=== PATIENT | male | born 1945 | race Caucasian/White ===

== ENCOUNTER 2019-12-27 10:27 | Outpatient (CLI) | payer MEDICARE, OTHER, SELFPAY ==
--- NOTE | 2019-12-27 09:45 | DI.RAD_ITS ---
EXAM: XR STANDING ALIGNMENT CLINICAL HISTORY: knee pain TECHNIQUE: COMPARISON: CR XR KNEE RT 3V AP,LAT,PASTOR from 12/27/2019 FINDINGS: Standing alignment views and three views of the right knee were obtained. There are mild degenerativ e changes of both hips and SI joints. There are moderate degenerative changes of the medial tibiofem oral joint on the left. On the right there is severe narrowing of the medial tibiofemoral cartilagin ous joint space with subchondral sclerosis of the adjacent bones. Slight marginal osteophyte formati on also noted at the medial tibiofemoral joint. Moderate marginal osteophyte formation of the patellofemoral joint also. IMPRESSION: Severe DJD right medial tibiofemoral joint. RADIATION DOSE DELIVERED: Total DLP
== END 2019-12-27 10:47 ==
PROVIDERS: PCP Internal Medicine; Referring Provider Internal Medicine; Visit Provider Student in an Organized Health Care Education/Training Program
DX: M17.0 Bilateral primary osteoarthritis of knee (principal); M25.761 Osteophyte, right knee; M17.11 Unilateral primary osteoarthritis, right knee; M25.561 Pain in right knee
CPT/HCPCS: 73562; 99203; 77073

== ENCOUNTER 2020-02-14 01:00 | Outpatient (CLI) | payer MEDICARE, OTHER, SELFPAY ==
[2020-02-14 14:11] LABS: HCT 40.9 % (40.0-50.0); HGB 13.3 g/dL (13.5-17.5); MCH 30.3 pg (27.0-33.0); MCHC 32.5 % (32.0-36.0); MCV 93.2 fL (80-95); MPV 9.9 fL (8.0-11.0); Platelet Count 220 10^3/uL (130-400); RBC 4.39 10^6/uL (4.36-5.78); RDW 13.2 % (11.8-14.1); RDW-SD 45.6 fL; WBC 5.77 10^3/uL (4.4-10.8)
[2020-02-14 14:40] LABS: Anion Gap 8.5 mmol/L (3-11); BUN 28 mg/dL (7-18); CO2 27.5 mmol/L (21.0-32.0); CREATININE 1.17 mg/dL (0.70-1.30); Calcium 8.9 mg/dL (8.5-10.1); Chloride 106 mmol/L (98-107); Glucose 100 mg/dL (74-106); Potassium 4.5 mmol/L (3.5-5.1); Sodium 142 mmol/L (136-145)
== END 2020-02-14 01:20 ==
PROVIDERS: PCP Internal Medicine; Visit Provider Student in an Organized Health Care Education/Training Program
DX: Z01.818 Encounter for other preprocedural examination (principal)
CPT/HCPCS: 36415; 80048; 85027

== ENCOUNTER 2020-02-15 01:47 | Outpatient (CLI) | payer MEDICARE, OTHER, SELFPAY ==
[2020-02-17 11:51] LABS: SARS-CoV-2 RNA Not Detected (NotDetected); SARS-CoV-2 RNA Source Nasal/Nares
== END 2020-02-15 02:07 ==
PROVIDERS: PCP Internal Medicine; Visit Provider Student in an Organized Health Care Education/Training Program
DX: Z11.59 Encounter for screening for other viral diseases (principal); Z01.818 Encounter for other preprocedural examination
CPT/HCPCS: U0003

== ENCOUNTER 2020-02-20 07:00 | Observation (INO) | payer MEDICARE, OTHER, SELFPAY ==
[2020-02-20] VITALS (10 sets, daily range): BP systolic 126–187; BP diastolic 56–92; PULSE 33–64; RESP 10–20; TEMP 35.9–36.4; O2SAT 96–98
--- NOTE | 2020-02-20 07:22 | W.PM.DS.N ---
Documented by User: Sara Robi 02/20/20 07:26 DS: Diagnosis Discharge Diagnosis (1) Primary osteoarthritis of right knee: Status: Chronic Discharge Plan Disposition Patient Disposition: HOME Condition: Good Discharge Details Reason For Visit: Right knee DJD Admit Date/Time: 02/20/20 07:00 Admit Provider: Lion Hercules Attending Provider: Lion Hercules Primary Care Provider: Rebeca Jennings Hospital Course Hospital Course: Patient was admitted to the medical/surgical floor following the procedure. Prior to surgery Eze was noted to have an irregular rate. Therefore, an EKG was performed which demonstrated intermittent PVC in bigeminy. Given he was asymptomatic, this case was briefly discussed with Cardiology who agreed that it is a usually benign rhythm that should have outpatient followup but not delay surgery. Thus, the surgery for his knee was continued and it was tolerated well without any notable medical, surgical, or anesthetic complications. Mobilization began post-operatively. He was voiding spontaneously. Vitals were stable except for irregularities with pulse on the recording devices. Physical therapy worked with the patient and was cleared for discharge home. No acute medical issues. Pain was controlled on oral regimen. Home Meds and New Rx's Prescriptions: New acetaminophen 500 mg tablet 500 mg PO Q6H PRN (Reason: pain) Qty: 60 RF: 2 aspirin 81 mg tablet,delayed release (DR/EC) 81 mg PO BID 30 Days Qty: 60 RF: 0 celecoxib [Celebrex] 200 mg capsule 200 mg PO BID Qty: 60 RF: 0 docusate sodium [Colace] 100 mg capsule 100 mg PO BID Qty: 30 RF: 0 oxycodone 5 mg tablet 2.5 - 5 mg PO Q4H PRN (Reason: severe post-operative pain) Qty: 18 RF: 0 pantoprazole 40 mg tablet,delayed release (DR/EC) 40 mg PO DAILY 30 Days Qty: 30 RF: 0 Discontinued metoprolol tartrate 100 mg tablet 100 mg PO DAILY RF: 0 naproxen 500 mg tablet 500 mg PO BID RF: 0 No Action ropinirole 0.5 mg tablet 1 mg PO QHS RF: 0 naproxen 500 mg Tablet 500 mg PO BID RF: 0 Discharge Instructions Additional Instructions: Total Knee Discharge Instructions Activity: The most important activity is to walk. You should try to take short walks a few times a day. It is important that when resting you work on keeping the knee straight. Avoid putting a pillow behind the knee as this will encourage flexion. Work on range of motion exercises as provided by Physical Therapy. - Start outpatient physical therapy within 2 weeks. - You should wear the PAT hose on both legs for 2 weeks. Dressing: Keep the surgical dressing in place for at least one week. After the first week it may be removed and replace with light gauze and tape or nothing. It may get wet after 3 days but avoid soaking the dressing. If it gets wet, just lightly pat dry. Medications: HOLD YOUR METOPROLOL UNTIL DISCUSSED WITH DR. JENNINGS - You should take Tylenol and anti-inflammatory Celebrex as your primary pain control medications. You should not take your Naproxen while on Celebrex. - You have been prescribed a stronger pain medication Oxycodone for breakthrough pain, take as needed as prescribed. - You have also been prescribed a stomach acid reduction agent Pantoprozole to help reduce stomach acid and reflux. - You will be taking Aspirin 81mg twice a day for DVT prevention unless instructed otherwise. - If you have constipation you should take Colace (which was prescribed) or Miralax (which you may purchase [id number]). It takes most people 3-4 days to have a bowel movement. Follow-up: 2 weeks If you have any acute concerns or questions, please do not hesitate to contact the office at [phone]. You may contact Dr. Hercules with any questions after hours through the hospital at [phone] or on his cell phone at [phone]. Referrals: Lion Hercules MD [ [facility] STAFF PHYSICIAN] - Activity:: Activity as Tolerated Equipment/Supplies:: Walker Diet:: As Tolerated Discharge Orders Discharge Orders: Discharge Order (Routine); Ordered 02/21/20 Ordered By: Lion Hercules [facility] Medical History HTN (hypertension) Refusal of blood transfusions as patient is Advent RLS (restless legs syndrome) Surgical History Hx of meniscectomy of right knee Social History Smoking/Tobacco Use Status: Former Tobacco Use Smoking risk assessment performed?: Yes Drug use: Never Current gender identity: male Documented by User: Lion Hercules MD 02/21/20 07:41 Date of service: 02/21/20 Time of Service: 07:33 Discharge Plan Disposition Patient Disposition: HOME Condition: Good Discharge Details Reason For Visit: Right knee DJD Admit Date/Time: 02/20/20 07:00 Admit Provider: Lion Hercules Attending Provider: Lion Hercules Primary Care Provider: Rebeca Jennings Hospital Course Hospital Course: Patient was admitted to the medical/surgical floor following the procedure. Prior to surgery Eze was noted to have an irregular rate. Therefore, an EKG was performed which demonstrated intermittent PVC in bigeminy. Given he was asymptomatic, this case was briefly discussed with Cardiology who agreed that it is a usually benign rhythm that should have outpatient followup but not delay surgery. Thus, the surgery for his knee was continued and it was tolerated well without any notable medical, surgical, or anesthetic complications. Mobilization began post-operatively. He was voiding spontaneously. Vitals were stable except for irregularities with pulse on the recording devices. Physical therapy worked with the patient and was cleared for discharge home. No acute medical issues. Pain was controlled on oral regimen. Home Meds and New Rx's Prescriptions: New acetaminophen 500 mg tablet 500 mg PO Q6H PRN (Reason: pain) Qty: 60 RF: 2 aspirin 81 mg tablet,delayed release (DR/EC) 81 mg PO BID 30 Days Qty: 60 RF: 0 celecoxib [Celebrex] 200 mg capsule 200 mg PO BID Qty: 60 RF: 0 docusate sodium [Colace] 100 mg capsule 100 mg PO BID Qty: 30 RF: 0 oxycodone 5 mg tablet 2.5 - 5 mg PO Q4H PRN (Reason: severe post-operative pain) Qty: 18 RF: 0 pantoprazole 40 mg tablet,delayed release (DR/EC) 40 mg PO DAILY 30 Days Qty: 30 RF: 0 Discontinued metoprolol tartrate 100 mg tablet 100 mg PO DAILY RF: 0 naproxen 500 mg tablet 500 mg PO BID RF: 0 No Action ropinirole 0.5 mg tablet 1 mg PO QHS RF: 0 naproxen 500 mg Tablet 500 mg PO BID RF: 0 Discharge Instructions Additional Instructions: Total Knee Discharge Instructions Activity: The most important activity is to walk. You should try to take short walks a few times a day. It is important that when resting you work on keeping the knee straight. Avoid putting a pillow behind the knee as this will encourage flexion. Work on range of motion exercises as provided by Physical Therapy. - Start outpatient physical therapy within 2 weeks. - You should wear the PAT hose on both legs for 2 weeks. Dressing: Keep the surgical dressing in place for at least one week. After the first week it may be removed and replace with light gauze and tape or nothing. It may get wet after 3 days but avoid soaking the dressing. If it gets wet, just lightly pat dry. Medications: HOLD YOUR METOPROLOL UNTIL DISCUSSED WITH DR. JENNINGS - You should take Tylenol and anti-inflammatory Celebrex as your primary pain control medications. You should not take your Naproxen while on Celebrex. - You have been prescribed a stronger pain medication Oxycodone for breakthrough pain, take as needed as prescribed. - You have also been prescribed a stomach acid reduction agent Pantoprozole to help reduce stomach acid and reflux. - You will be taking Aspirin 81mg twice a day for DVT prevention unless instructed otherwise. - If you have constipation you should take Colace (which was prescribed) or Miralax (which you may purchase [id number]). It takes most people 3-4 days to have a bowel movement. Follow-up: 2 weeks If you have any acute concerns or questions, please do not hesitate to contact the office at [phone]. You may contact Dr. Hercules with any questions after hours through the hospital at [phone] or on his cell phone at [phone]. Referrals: Lion Hercules MD [ [facility] STAFF PHYSICIAN] - Activity:: Activity as Tolerated Equipment/Supplies:: Walker Diet:: As Tolerated Discharge Orders Discharge Orders: Discharge Order (Routine); Ordered 02/21/20 Ordered By: Lion Hercules DS: Summary Status at Discharge Functional status at discharge: uses cane/walker Overall status at discharge: patient is progressing back to baseline Mental Status: mental status grossly normal Speech and Movement: speech and movement normal Mood: congruent mood Affect: normal affect Exam Psych Mental Status: mental status grossly normal Speech and Movement: speech and movement normal Mood: congruent mood Affect: normal affect [facility] Medical History HTN (hypertension) Refusal of blood transfusions as patient is Advent RLS (restless legs syndrome) Surgical History Hx of meniscectomy of right knee Social History Smoking/Tobacco Use Status: Former Tobacco Use Smoking risk assessment performed?: Yes Drug use: Never Current gender identity: male
--- NOTE | 2020-02-20 10:15 | RT.EKG_ITS ---
APPROVED REPORT Exam: Resting ECG Patient Location: I HR:67 bpm ECG Measurements Heart Rate 67 AXIS NH 185 P 49 QRSd 94 QRS 9 QT 406 T 17 QTc 428 Conclusion Sinus rhythm...normal P axis, V-rate 60- 99 Ventricular trigeminy...trigeminy string>6 w/ V complexes Probable left atrial enlargement...P >50mS, <-0.10mV V1
[2020-02-20] MEDS: Lactated Ringers 1,000 ML 80 ML IV ×2 (11:05→20:33)
[2020-02-20] MEDS: Acetaminophen 500 MG TAB 1000 MG PO ×2 (11:07→20:31)
[2020-02-20] MEDS: Gabapentin 300 MG CAP PO ×2 (11:07→21:56)
[2020-02-20] MEDS: Celecoxib 200 MG CAP 400 MG PO (11:07)
[2020-02-20] MEDS: ceFAZolin 2 GM/50 ML BAG IVPB (12:14)
[2020-02-20] MEDS: Bupivacaine 0.25% Pres-Free 30 ML VIAL (12:33)
[2020-02-20] MEDS: Bupivacaine 0.25% Pres-Free 10 ML VIAL (12:45)
[2020-02-20] MEDS: Ketorolac 30 MG/ML VIAL (12:47)
[2020-02-20] MEDS: Normal Saline 20 ML VIAL (12:48)
--- NOTE | 2020-02-20 13:40 | ROE_ITS ---
Date of service: 02/20/20 Time of Service: 13:40 Operative Note Operative Note DATE OF PROCEDURE: 02/20/20 PRE-OP DIAGNOSIS: Right Knee Osteoarthritis POST-OP DIAGNOSIS: same PROCEDURE: Right Total Knee Replacement SURGEON: Lion Hercules ROPE TWISTING MACHINE OPERATOR: Annabelle Cloud ANESTHESIA: regional and spinal ESTIMATED BLOOD LOSS: 300 PATHOLOGY: none sent TOURNIQUET TIME: 0 COMPLICATIONS: None Patient was transported to: PACU Patient's condition: stable Implants: 1. Depuy Attune Cementless Cruciate Retaining Femoral Component, Size 8 2. Depuy Attune Cementless Rotating Platform Tibial Component, Size 6 3. Depuy Attune 8x6mm CR/RP Poly 4. Depuy Attune Patellar Component, Size 38mm Indications: I have seen Howard in clinic for symptoms of knee arthritis, confirmed with radiographic findings. He has exhausted nonoperative methods and was having significant limitations in daily function and desired better function and less pain. I discussed the technical details of a knee replacement. I explained the risks of the procedure to include, but not limited to, bleeding, i nfection, pain, stiffness, fracture, damage to nerves and vessels, damage to muscles and tendons, loosening, need for repeat procedure, blood clot and cardiopulmonary demise. Despite these risks, Howard elected to proceed. Findings: There was significant signs of arthritis throughout the knee, mostly of the patellofemoral and medial compartment Procedure Description: Howard was greeted in the preoperative holding area where the correct side was identified and marked. The consent was reviewed with the patient and signed. The history and physical was updated. All questions were answered. Preoperative medications were administered: Acetaminophen 1000mg, Celebrex 400mg, and Gabapentin 300mg. An adductor canal block was then administered by the anesthesia team in the PACU. He was taken back to the operating room. A spinal anesthestic was then administered. The patient was placed into the supine position on the operating room table. A nonsterile tourniquet was placed high onto the leg but only used for cementing. Posts were placed for positioning during the procedure. All bony prominences were well padded. Prophylactic antibiotics in the form of Cefazolin were administered. 1g of Tranxemic Acid was given intravenously within 30 minutes of incision. The right leg was then prepped with Chloraprep and draped in a standard fashion with impervious stockinette. A second prep with Chloraprep was performed prior to application of Iodine impregnated skin protection. A timeout to confirm correct identity, side and site, procedure, allergies, anesthesia, and medical concerns was performed. With the knee in some flexion, a midline incision was made overlying the knee. Full thickness skin flaps were raised once the extensor mechanism was encountered. These were raised medially and laterally. Any bleeding was controlled with electrocautery. Once the extensor mechanism was fully exposed, a medial parapatellar arthrotomy was performed in a flexed position. All bleeding from the arthrotomy and the geniculate arteries was coagulated. A medial subperiosteal peel was performed with electrocautery to the midcoronal plane. The fat pad was removed while keeping the patellar tendon protected. The anterior distal femur synovium was removed for later visualization. The ACL and PCL were resected and the anterior horn of the lateral meniscus was transected. The knee was then flexed with the patella everted. Large osteophytes from the tibia were removed. Large o steophytes from the femur were removed. Using a step drill, and based on preoperative templating, the femoral canal was entered. This was done with a step drill without any difficulty. The intram edullary distal femoral cut guide was inserted, set to a 5 degree valgus cut and 9mm cut thickness. The distal femoral cut guide was then held in position and pinned. With the soft tissues protected, the distal cut was performed. This was passed over a few times to ensure a planar cut. I then turned attention to the tibia. The extramedullary guide was placed onto the leg. The distal aspect was slid medial to adjust for position of center of ankle and stay in line with shaft of the tibia. Approximately 5 degrees of posterior slope was kept in the proximal cutting guide. The center of the guide was aligned with the PCL. The stylus was used to assess cut thickness. The medial side, most involved side, was set for a 2mm cut. This was then held in position and pinned into place with 2 additional pins and a cross pin for stability. The medial and lateral collateral ligaments were protected and the cut was performed. With this completed, it was assessed and noted to be of appropriate dimensions. The guide was removed. A spacer block was inserted and the knee was brought into extension. The 6mm spacer block provided full extension, without hyperextension and with stability of both the medial and lateral collateral ligaments was assessed. The pins from the femur and the tibia were then removed. The distal femur was then sized. The anterior stylus was placed onto the lateral ridge of the anterior femur. This indicated a size 8 femur. The external rotation of the guide was adjusted to 3 degrees to match the epicondylar axis, perpendicular to [place]?s line. The 4-in-1 cutting guide was the placed. The posterior medial femur cut was evaluated and appeared of good thickness. The spacer block was inserted underneath the cutting guide and stability was confirmed in 90 degrees of flexion. An abelardo wing was used to confirm appropriate position of the anterior cut to avoid notching. This cutting guide was ensured to be flush on the cut surface and then pinned into place with headed pins. While protecting the soft tissues, quad tendon, and collateral ligaments, the anterior and posterior cuts were performed with a saw. The central two pins were removed and the posterior and anterior chamfers were cut next. The notch-cutting guide was placed. This was pinned to lateralize the femoral component as much as possible while keeping it flush on the cut surface. This was then pinned into position. A reciprocating saw was used to make the notch cut. A rasp smoothed the cut surfaces. The medial and lateral menisci were removed. A trial femoral component was then inserted, impacted down to the cut surfaces, and the lug holes were drilled. A provisional trial tibial component was placed and the knee was brought through range of motion. There was noted to be excellent extension and flexion. There was no significant instability. The patella was tracking without thumbs. A size 6mm polyethylene component provided the best range of motion and stability with less than 2mm gapping with medial and lateral stress and full extension without significant hyperextension. The tibial cut surface was fully exposed. The tibia was then sized as a 6. The tibia had been previously marked during trialing to correspond to the center of the tibial component to help with rotation. The trial was aligned to this sherrell, approximately rotated to the medial 1/3rd of the tibial tubercle. The trial was pinned into place. The tibia was prepared with a reamer and a keel punch and lug holes. The knee was then brought into extension and the patella was measured as 28mm. Using the patellar clamp and cut guide, this was resected to a flat surface with at least 13mm of thickness remaining. The size 38mm patella fit the best. This was oriented and then clamped into position. The lugs were drilled. The trial components were removed. The final components were opened on the back table. The periosteal and capsular tissues, especially posteriorly, around the knee were then systematically injected with a periarticular cocktail consisting of 50cc 0.25% Marcaine, 30mg Ketorolac, 20cc of Exparal and 50cc of injectable saline. The knee was thoroughly irrigated with a pulse lavage and dried. Irrisept was also used to irrigate the tissues. On the back table, with the implants opened, the cement was mixed. One batche of high viscosity cement were prepared with vacuum assistance. After the cement was ready a small amount was placed on the cut surface of the patella and the patellar button was clamped into position and held. During this process attention was turned to the gutters of the knee and for all interfaces for any excess cement. While the cement was hardening, the cementless knee components were placed. Starting with the tibial component, the tibia was subluxed anteriorly and the lug holes of the component were lined up. The tibia was then impacted with an impactor and mallet until the tibial component was in contact with the tibia. The final polyethylene component was inserted. Then, the femoral component was inserted. The lug holes were aligned and the component was impacted into position. The knee was irrigated with Irrisept chlorhexadine solution. This was allowed to sit in the knee for 3 minutes. After the cement had finally cured, approximately 15min, the clamp was removed from the patella and the knee was taken through range of motion. The patella was tracking with a no-thumbs technique. The capsule was then reapproximated with a No. 1 Vicryl at multiple locations. The capsule was finally closed with a No. 2 Stratafix, barbed suture. The tourniquet was then released and the arthrotomy appeared watertight without significant bleeding. The second dosing of 1g TXA was started. Deep tissues were then reapproximated with 0 Vicryl and 2-0 Vicryl. The skin was closed with a running 3-0 Monocryl in a subcuticular fashion. This was reinforced with skin glue. A Mepilex silver dressing was applied along with a [id number] ABDIRASHID wrap. A CryoCuff was applied. Howard was transferred to the hospital bed without difficulty an suffering no apparent complication. Howard has a good prognosis. Physical therapy will start today and without restrictions, weight-bearing as tolerated. Aspirin 81mg BID will be used for DVT prophylaxis.
--- NOTE | 2020-02-20 15:15 | PT.INIE ---
Date of service: 02/20/20 Time of Service: 15:15 PT Notes Visit Reasons: Right knee DJD Physical Therapy Inpatient Initial Evaluation Date: 02/20/2020 Referring Doctor: NIGHAT Russell PT Orders: PT CONSULT: Status post Ortho surgery Precautions: Fall. Standard. WBAT on right LE. Patient Profile/Admitting Diagnosis: Howard is a 74-year-old male with primary unilateral osteoarthritis of the right knee and is status post right total knee arthroplasty on postoperative day 0. PMHX: Unremarkable Social History/Home Situation: Lives with in a private home with 4 steps to enter with a rail on the right side going up. Independent with all aspects of ADLs prior to surgery. Equipment Owned/DME: Front wheeled walker, raised toilet seat Subjective: Agreeable to PT consult. Denies headache, chest pain, and dizziness throughout session. Objective: General Observation: ABDIRASHID wraps over Mepilex Ag on the right knee. Cryo/Cuff in the right knee. IV in R UE. Pop-eye sign on the R arm due to pre existing R biceps brachii rupture. Mental Status: Oriented x 4 Pain: 4/10 in the right knee Vital Signs: Within normal limits as closely monitored by nursing staff. ROM: Right Upper Extremity: Shoulder Flexion WFL. Shoulder abduction WFL. Elbow flexion WFL. Wrist flexion WFL. Opening and closing of hand WFL. Left Upper Extremity: Shoulder Flexion WFL. Shoulder abduction WFL. Elbow flexion WFL. Wrist flexion WFL. Opening and closing of hand WFL. Right Lower Extremity: Hip flexion WFL. Hip abduction WFL. Knee flexion 20 degrees to 100 degrees. Knee extension -20 degrees. Ankle dorsiflexion WFL. Ankle plantarflexion WFL. Left Lower Extremity: Hip flexion WFL. Hip abduction WFL. Knee flexion WFL. Ankle dorsiflexion WFL. Ankle plantarflexion WFL. Strength: Right Upper Extremity: Shoulder flexors 5/5. Shoulder abductors 5/5. Elbow flexors 5/5. Elbow extensors 5/5. Director Life Sales strong. Left Upper Extremity: Shoulder flexors 5/5. Shoulder abductors 5/5. Elbow flexors 5/5. Elbow extensors 5/5. Director [employer] strong. Right Lower Extremity: Hip flexors 4-/5. Hip abductors 4-/5. Knee flexors 3-/5. Knee extensors 3-/5. Ankle dorsiflexors 5/5. Ankle plantarflexors 5/5. Left Lower Extremity:Hip flexors 5/5. Hip abductors 5/5. Knee flexors 5/5. Knee extensors 5/5. Ankle dorsiflexors 5/5. Ankle plantarflexors 5/5. Sensation: Intact as to pain and pressure on bilateral lower extremities. Bed Mobility/Transfers: Rolling supervision Supine to sit supervision Sit to supine supervision Sit to stand standby assist Stand to sit standby assist Bed to chair standby assist THERA EX: Education and training in correct performance of standing, seated, and reclined exercises 1. Bilateral heel raises x 10 while holding onto FWW contact-guard assist 2. Seated hip flexion x 10 3. LAQs x 10 4. Quadriceps setting with 5-second hold x 10 4. Ankle PF/DF x 20 Gait: 100 feet x 2 using front wheeled walker with WBAT on the right LE requiring only standby assist with step to gait pattern and decreased hadyee. Denies headache, dizziness, chest pain throughout. No LOB. Up and down six 4 inch steps and four 6 inch steps holding onto 1 rail and a single-point cane with the other hand requiring only standby assist. Balance: Static Sitting: Normal Dynamic Sitting: Normal Static Standing: Fair Dynamic Standing: Fair Special Tests: Mobility Limitations Standardized Measure [facility] AM-PAC 6 clicks Basic Mobility Inpatient Short Form: Raw Score: 22 CMS Score: 21% deficit Informed Consent/Education: Patient instructed in purpose of PT consult and plan of care. Assessment: Number demonstrates functional mobility decline requiring the use of a front wheeled walker and assist of 1 for all mobility ADL performance, impaired gait pattern, compromised balance skills, and increased risk for falls due to postoperative status. Howard is a 74-year-old male with primary unilateral osteoarthritis of the right knee and is status post right total knee arthroplasty on postoperative day 0. Patient presents with clinical signs and symptoms consistent with current/admitting diagnoses that have resulted to mobility limitations, gait instability, generalized weakness, and impairment of motor control as demonstrated by the following impairment level findings: 1. Decreased strength to right knee major muscle groups 2. Impaired standing balance 3. Impaired activity tolerance 4. Limitation of joint range of motion in right knee Impairments are contributing to the following functional limitations: 1. Inability to safely ambulate without assistive device and physical assistance 2. Increase completion time for mobility ADL performance 3. Increased fall risk 4. Inability to negotiate steps alone safely Patient is assessed as a 03434 moderate complexity based on the following: History: 74-year-old male with impairment level findings, functional limitations, and past medical history as indicated above Examination: Demonstrable impairment in strength, balance, and mobility level with underlying impairments and functional limitations as documented above Presentation:Evolving Decision Makin moderate complexity Goals: Goals X 1-2 more sessions 1. Supine-Sit independent 2. Sit-Supine independent 3. Sit-Stand independent 4. Stand-Sit independent 5. Bed-Chair independent 6. Chair-Bed independent 7. Independent gait on level surface with use of least restrictive device for at least 300 feet without report of pain nor dyspnea 8. Independent stair negotiation while holding onto bilateral rails for at least 10 steps without report of pain nor dyspnea 9. Independent with home exercise program 10. Good static and dynamic standing balance/tolerance Plan of Care/Treatment Plan: 1-2x/day, 7 days/week x 1 week. Plan of care has been reviewed with the DISASTER RECOVERY ANALYST providing the service under Physical Therapy direction. Initiate Physical Therapy intervention for strengthening, bed mobility, transfers, gait, stairs, balance training, use of assistive device. DISCHARGE RECOMMENDATIONS: Home when medically cleared by orthopedic surgeon. May benefit from outpatient PT services as deemed necessary by orthopedic surgeon at the 2-week follow-up appointment return to premorbid independent level. TREATMENT CODE/TIME: 9716 2 x 25 minutes, 71954 x 16 minutes beginning at 15:15 PM. Thank you for the opportunity to participate in the care of this patient. Sosa Duarte PT, DPT, CLT [facility] [place], [place]
[2020-02-20] MEDS: oxyCODONE 5 MG TAB PO (15:16)
[2020-02-20] MEDS: Aspirin E.C. 81 MG TABEC PO (20:31)
[2020-02-20] MEDS: Celecoxib 200 MG CAP PO (20:31)
[2020-02-20] MEDS: ceFAZolin 1 GM/50 ML BAG IVPB (20:32)
[2020-02-20] MEDS: rOPINIRole 0.5 MG TAB 1 MG PO (21:56)
[2020-02-21 01:00] VITALS: PULSE 34
[2020-02-21 01:17] VITALS: PULSE 65; O2SAT 99
[2020-02-21] MEDS: ceFAZolin 1 GM/50 ML BAG IVPB (04:11)
[2020-02-21] MEDS: Lactated Ringers 1,000 ML 80 ML IV (06:27)
[2020-02-21 07:33] VITALS: BP 130/66; PULSE 57; RESP 17; TEMP 36.8; O2SAT 98
[2020-02-21] MEDS: Aspirin E.C. 81 MG TABEC PO (07:46)
[2020-02-21] MEDS: Acetaminophen 500 MG TAB 1000 MG PO (07:46)
[2020-02-21] MEDS: Pantoprazole 40 MG TABCR PO (07:46)
[2020-02-21] MEDS: Celecoxib 200 MG CAP PO (07:46)
[2020-02-21] MEDS: Normal Saline Flush 10 ML SYR IV (07:54)
--- NOTE | 2020-02-21 08:52 | PTTR_ITS ---
Date of service: 02/21/20 Time of Service: 08:52 PT Notes Visit Reasons: Right knee DJD 02/21/2020 SUBJECTIVE: Howard noting 3/10 discomfort in his knee which is a tolerable level. He will be going home later today. OBJECTIVE: 46336, 01355 TRANSFERS Sit to stand: S Stand to sit: S GAIT Device: FWW Weight bearing: AT R Assist: S Distance: 100'x2 Deviation: Step to pattern progressing to step through THEREX: Review QS, GS, SLR, LAQ, ankle pumps for home completion. Reviewed sleeping positions and avoiding towel or pillow under knee. STAIRS: 3-4, 2-6, 1 rail, 1 SPC, step to pattern, SBA ASSESSMENT: Pt tolerates PT well without difficulty on stairs or straight plane ambulation. He has a good understanding of his home program. PLAN: Pt to be discharged. See discharge summary for details. Treatment time: 25 minutes Breann Perez PTA Clinic location: [facility] [place], [place]
--- NOTE | 2020-02-22 16:50 | PT.INDS ---
Date of service: 02/22/20 Time of Service: 16:50 PT Notes Visit Reasons: Right knee DJD Physical Therapy Inpatient Discharge Summary Date: 02/22/2020 Date of service: 02/20/2020 through 02/21/2020 Referring Doctor: NIGHAT Russell PT Orders: PT CONSULT: Status post Ortho surgery Precautions: Fall. Standard. WBAT on right LE. Patient Profile/Admitting Diagnosis: Howard is a 74-year-old male with primary unilateral osteoarthritis of the right knee and is status post right total knee arthroplasty on postoperative day 0. PMHX: Unremarkable Social History/Home Situation: Lives with in a private home with 4 steps to enter with a rail on the right side going up. Independent with all aspects of ADLs prior to surgery. Equipment Owned/DME: Front wheeled walker, raised toilet seat Subjective: NT. See most recent ACUTE CARE PHYSICAL THERAPIST notes. Objective: General Observation: NT. See most recent ACUTE CARE PHYSICAL THERAPIST notes.. Mental Status: NT. See most recent ACUTE CARE PHYSICAL THERAPIST notes. Pain: NT. See most recent ACUTE CARE PHYSICAL THERAPIST notes. Vital Signs: NT. See most recent ACUTE CARE PHYSICAL THERAPIST notes. Right Upper Extremity: Shoulder Flexion WFL. Shoulder abduction WFL. Elbow flexion WFL. Wrist flexion WFL. Opening and closing of hand WFL. Left Upper Extremity: Shoulder Flexion WFL. Shoulder abduction WFL. Elbow flexion WFL. Wrist flexion WFL. Opening and closing of hand WFL. Right Lower Extremity: Hip flexion WFL. Hip abduction WFL. Knee flexion 20 degrees to 100 degrees. Knee extension -20 degrees. Ankle dorsiflexion WFL. Ankle plantarflexion WFL. Left Lower Extremity: Hip flexion WFL. Hip abduction WFL. Knee flexion WFL. Ankle dorsiflexion WFL. Ankle plantarflexion WFL. Strength: Right Upper Extremity: Shoulder flexors 5/5. Shoulder abductors 5/5. Elbow flexors 5/5. Elbow extensors 5/5. Grave Digger strong. Left Upper Extremity: Shoulder flexors 5/5. Shoulder abductors 5/5. Elbow flexors 5/5. Elbow extensors 5/5. Grave Digger strong. Right Lower Extremity: Hip flexors 4-/5. Hip abductors 4-/5. Knee flexors 3-/5. Knee extensors 3-/5. Ankle dorsiflexors 5/5. Ankle plantarflexors 5/5. Left Lower Extremity:Hip flexors 5/5. Hip abductors 5/5. Knee flexors 5/5. Knee extensors 5/5. Ankle dorsiflexors 5/5. Ankle plantarflexors 5/5. Sensation: Intact as to pain and pressure on bilateral lower extremities. Bed Mobility/Transfers: Rolling supervision Supine to sit supervision Sit to supine supervision Sit to stand supervision Stand to sit supervision Bed to chair supervision Gait: 100 feet x 2 using front wheeled walker with WBAT on the right LE requiring only standby assist with step to gait pattern and decreased haydee. Denies headache, dizziness, chest pain throughout. No LOB. Up and down six 4 inch steps and four 6 inch steps holding onto 1 rail and a single-point cane with the other hand requiring only standby assist. Balance: Static Sitting: Normal Dynamic Sitting: Normal Static Standing: Fair Dynamic Standing: Fair Assessment: Howard demonstrates functional mobility decline requiring the use of a front wheeled walker and assist of 1 for all mobility ADL performance, impaired gait pattern, compromised balance skills, and increased risk for falls due to postoperative status. Howard is a 74-year-old male with primary unilateral osteoarthritis of the right knee and is status post right total knee arthroplasty on postoperative day 0. Patient continues to present with clinical signs and symptoms consistent with current/admitting diagnoses that have resulted to mobility limitations, gait instability, generalized weakness, and impairment of motor control as demonstrated by the following impairment level findings: 1. Decreased strength to right knee major muscle groups 2. Impaired standing balance 3. Impaired activity tolerance 4. Limitation of joint range of motion in right knee Impairments are continuing to contributing to the following functional limitations: 1. Inability to safely ambulate without assistive device and physical assistance 2. Increase completion time for mobility ADL performance 3. Increased fall risk 4. Inability to negotiate steps alone safely Goals: Goals X 1-2 more sessions 1. Supine-Sit independent NOT MET 2. Sit-Supine independent NOT MET 3. Sit-Stand independent NOT MET 4. Stand-Sit independent NOT MET 5. Bed-Chair independent NOT MET 6. Chair-Bed independent NOT MET 7. Independent gait on level surface with use of least restrictive device for at least 300 feet without report of pain nor dyspnea NOT MET 8. Independent stair negotiation while holding onto bilateral rails for at least 10 steps without report of pain nor dyspnea NOT MET 9. Independent with home exercise program NOT MET 10. Good static and dynamic standing balance/tolerance NOT MET DISCHARGE RECOMMENDATIONS: Home when medically cleared by orthopedic surgeon. May benefit from outpatient PT services as deemed necessary by orthopedic surgeon at the 2-week follow-up appointment return to premorbid independent level. TREATMENT CODE/TIME: ME Thank you for the opportunity to participate in the care of this patient. Sosa Duarte PT, DPT, CLT [facility] [place], [place]
== END 2020-02-21 11:12 | disposition home or self-care (01) | DRG 470 ==
LOC: PDS 02-29 09:37 → MS 02-29 09:37
PROVIDERS: Admitting Provider Student in an Organized Health Care Education/Training Program; PCP Internal Medicine; Visit Provider Student in an Organized Health Care Education/Training Program
PROC: 0SRC0J9 Replacement of Right Knee Joint with Synthetic Substitute, Cemented, Open Approach (ICD-10-PCS; CPT 27447; principal; 2020-02-20 13:15)
DX: M17.11 Unilateral primary osteoarthritis, right knee (principal); M25.561 Pain in right knee; Z96.641 Presence of right artificial hip joint; G89.18 Other acute postprocedural pain; R00.8 Other abnormalities of heart beat; Z23 Encounter for immunization; I10 Essential (primary) hypertension; G25.81 Restless legs syndrome
CPT/HCPCS: 27447; C1776; 76942; 97110; 97162; 97530; NC; J0690; J1885; J2250

== ENCOUNTER 2020-03-10 11:52 | Outpatient (CLI) | payer MEDICARE, OTHER, SELFPAY ==
--- NOTE | 2020-03-10 09:30 | DI.RAD_ITS ---
EXAM: XR STANDING ALIGNMENT CLINICAL HISTORY: 1st post op R TKA. TECHNIQUE: 2D digital imaging was performed. COMPARISON: CR XR STANDING ALIGNMENT from 12/27/2019 FINDINGS: There has been interval placement of a right knee prosthesis which appears be in satisfactory positio n and without evidence of obvious loosening. Moderate narrowing of the medial compartment of the opp osite-left knee is noted. Hips appear unremarkable. No osseous lesions. IMPRESSION: Right knee prosthesis. Moderate narrowing of the medial compartment of the left knee. DATA REPOSITORY: RADIATION DOSE DELIVERED:
--- NOTE | 2020-03-10 10:00 | DI.RAD_ITS ---
EXAM: XR KNEE RT 1V CLINICAL HISTORY: 1st post op R TKA. TECHNIQUE: 2D digital imaging was performed. COMPARISON: CR XR KNEE RT 3V AP,LAT,PASTOR from 12/27/2019 FINDINGS: Single lateral view of the right knee reveals satisfactory position and alignment of the components o f the prosthesis on this single-view study. There has also been patellar resurfacing. IMPRESSION: Satisfactory appearance DATA REPOSITORY: RADIATION DOSE DELIVERED:
== END 2020-03-10 12:12 ==
PROVIDERS: PCP Internal Medicine; Referring Provider Internal Medicine; Visit Provider Student in an Organized Health Care Education/Training Program
DX: Z96.651 Presence of right artificial knee joint (principal)
CPT/HCPCS: 73560; 77073

== ENCOUNTER → 2020-04-07 09:23 | Outpatient (BNVA) | payer MEDICARE, OTHER, SELFPAY | PROVIDERS: PCP Internal Medicine; Referring Provider Internal Medicine; Visit Provider Student in an Organized Health Care Education/Training Program | DX: Z47.1 Aftercare following joint replacement surgery (principal); Z96.651 Presence of right artificial knee joint ==

== ENCOUNTER → 2020-05-05 09:24 | Outpatient (BNVA) | payer MEDICARE, OTHER, SELFPAY | PROVIDERS: PCP Internal Medicine; Referring Provider Internal Medicine; Visit Provider Student in an Organized Health Care Education/Training Program | DX: Z47.1 Aftercare following joint replacement surgery (principal); Z96.651 Presence of right artificial knee joint ==

== ENCOUNTER → 2020-06-05 09:55 | Outpatient (BNVA) | payer MEDICARE, OTHER, SELFPAY | PROVIDERS: PCP Internal Medicine; Referring Provider Internal Medicine; Visit Provider Student in an Organized Health Care Education/Training Program | DX: Z47.1 Aftercare following joint replacement surgery (principal); Z96.651 Presence of right artificial knee joint | CPT/HCPCS: 99213 ==

== ENCOUNTER 2023-03-21 15:04 | Outpatient (CLI) | payer MEDICARE, OTHER, SELFPAY ==
--- NOTE | 2023-03-21 09:30 | DI.RAD_ITS ---
Exam(s) XR STANDING ALIGNMENT EXAM: XR STANDING ALIGNMENT CLINICAL HISTORY: TKR planning. TECHNIQUE: 2D digital imaging was performed. Standing AP views were performed from the pelvis throu gh the ankles. COMPARISON: CR XR KNEE RT 1V from 03/10/2020 CR XR STANDING ALIGNMENT from 03/10/2020 CR XR KNEE COMPLETE MIN 4V LT from 01/14/2023 FINDINGS: BONES: No acute fracture is present. No bony destructive lesion is seen. Leg length discrepancy: Mild with left femoral head projecting approximately 5 millimeter superior to the right. JOINTS: Knees: Stable appearance of right knee prosthesis. Severe narrowing medial femoral tibial monica int of the left knee. The ankle joints are unremarkable. The hip joints are unremarkable. SOFT TISSUE: Vascular calcifications. Lower leg edema. IMPRESSION: Severe degenerative changes medial femoral tibial joint left knee. Right knee prosthesis is unremar kable.. Mild leg length discrepancy. DATA REPOSITORY: RADIATION DOSE DELIVERED:
== END 2023-03-21 15:05 | disposition home or self-care (01) ==
LOC: DIORS 15:05
PROVIDERS: PCP Internal Medicine; Referring Provider Internal Medicine; Visit Provider Student in an Organized Health Care Education/Training Program
DX: M17.12 Unilateral primary osteoarthritis, left knee (principal)
CPT/HCPCS: 99213; 77073

== ENCOUNTER 2023-05-16 05:17 | Outpatient (CLI) | payer MEDICARE, SELFPAY ==
[2023-05-16 11:31] LABS: HCT 39.2 % (40.0-50.0); HGB 13.2 g/dL (13.5-17.5); MCH 32.1 pg (27.0-33.0); MCHC 33.7 % (32.0-36.0); MCV 95 fL (80-95); Platelet Count 223 10^3/uL (130-400); RBC 4.11 10^6/uL (4.36-5.78); RDW 13.4 % (11.8-14.1); RDW-SD 46.8 fL; WBC 4.93 10^3/uL (4.4-10.8)
[2023-05-16 12:15] LABS: Anion Gap 5.4 mmol/L (3-11); BUN 31 mg/dL (7-18); CO2 30.6 mmol/L (21.0-32.0); CREATININE 1.1 mg/dL (0.70-1.30); Calcium 9.6 mg/dL (8.5-10.1); Chloride 103 mmol/L (98-107); Estimated GFR 69.57 (mL/min/1.73m2); Glucose 117 mg/dL (74-106); Potassium 4.9 mmol/L (3.5-5.1); Sodium 139 mmol/L (136-145)
== END 2023-05-16 05:18 | disposition home or self-care (01) ==
LOC: LBO 05:17
PROVIDERS: PCP Internal Medicine; Visit Provider Student in an Organized Health Care Education/Training Program
DX: M17.12 Unilateral primary osteoarthritis, left knee (principal); Z01.818 Encounter for other preprocedural examination
CPT/HCPCS: 36415; 80048; 85027

== ENCOUNTER 2023-05-31 09:22 | Day surgery (SDC) | payer MEDICARE, SELFPAY ==
[2023-05-31 10:06] VITALS: BP 195/77; PULSE 57; RESP 16; TEMP 36.7; O2SAT 97
[2023-05-31] MEDS: Celecoxib 200 MG CAP 400 MG PO (10:13)
[2023-05-31] MEDS: Acetaminophen 500 MG TAB 1000 MG PO (10:13)
[2023-05-31] MEDS: Gabapentin 300 MG CAP PO (10:14)
[2023-05-31] MEDS: Lactated Ringers 1,000 ML 80 ML IV (10:14)
[2023-05-31 10:27] VITALS: BP 172/83; PULSE 55; RESP 16; O2SAT 95
--- NOTE | 2023-05-31 11:09 | W.ANESPRE ---
General Info Date of Service Date Performed: 05/31/23 Height: 5 ft 10 in Weight: 110.223 kg Body Mass Index (BMI): 34.8 Surgical Procedure: Operation Date: 05/31/23 12:40 Proposed Procedure Side Surgeon p Knee Total Arthroplasty, Cementless CR Left Lion Hercules MD Meds Allergies and Home Medications Allergies Allergy/AdvReac Type Severity Reaction Status Date / Time No Known Allergies Allergy Verified 05/31/23 09:43 Home Medication Medication Instructions Recorded ropinirole 0.5 mg tablet 1 mg PO QHS 02/14/20 acetaminophen 500 mg tablet 500 mg PO Q6H PRN pain #60 tabs 02/20/20 metoprolol succinate 100 mg 100 mg PO DAILY 06/05/20 tablet,extended release 24 hr acetaminophen 500 mg tablet 500 mg PO BID PRN 01/25/23 (Tylenol Extra Strength) carbidopa 25 mg-levodopa 100 mg 1 tab PO QID 01/25/23 tablet fluticasone propionate 50 2 spray intranasal DAILY 01/25/23 mcg/actuation nasal spray,suspension (Allergy Relief (fluticasone)) folic acid 1 mg tablet 1 mg PO DAILY 01/25/23 methotrexate sodium 2.5 mg tablet 10 mg PO QWEEK 01/25/23 tamsulosin 0.4 mg capsule 0.8 mg PO DAILY 01/25/23 tramadol 50 mg tablet 50 mg PO BID PRN 01/25/23 celecoxib 200 mg capsule 200 mg PO BID #60 caps 05/16/23 Current Visit Medications: Current Medications Generic Name Dose Route Start Last Admin Trade Name Freq PRN Reason Stop Dose Admin Acetaminophen 1,000 mg 05/31/23 06:00 05/31/23 10:13 Acetaminophen 500 Mg Tab PO 06/30/23 05:59 1,000 mg PREOP MARLON Administration Celecoxib 400 mg 05/31/23 06:00 05/31/23 10:13 Celecoxib 200 Mg Cap PO 06/30/23 05:59 200 mg PREOP MARLON Administration Gabapentin 300 mg 05/31/23 06:00 05/31/23 10:14 Gabapentin 300 Mg Cap PO 06/30/23 05:59 300 mg PREOP MARLON Administration Ringer's Solution 1,000 mls @ 80 mls/hr 05/31/23 06:00 05/31/23 10:14 IV 05/31/23 23:59 80 mls/hr INFUSION MARLON Administration Cefazolin Sodium 3,000 mg/ 100 mls @ 200 mls/hr 05/31/23 06:00 Sodium Chloride IV 05/31/23 16:00 PREOP MARLON Tranexamic Acid 1,000 mg/ 60 mls @ 360 mls/hr 05/31/23 06:00 Sodium Chloride IVPB 05/31/23 16:00 PREOP MARLON IV Miscellaneous Supplies 1 each 05/31/23 06:00 Iv Access IV 05/31/23 23:59 DIRECTED MARLON Sodium Chloride 0 ml 05/31/23 06:00 Normal Saline Flush 10 Ml Syr IV 05/31/23 23:59 PRN PRN Sodium Chloride 0 ml 05/31/23 06:00 Normal Saline 10 Ml Vial IJ 05/31/23 23:59 DIRECTED PRN Sterile Water 0 ml 05/31/23 06:00 Water,Injection,Sterile 10 Ml Vial IJ 05/31/23 23:59 DIRECTED PRN PFSH Active Problems Active Problems: Problem Status Onset Code Osteoarthritis of left knee M17.12 Onychomycosis B35.1 Obesity E66.9 Prostatic hypertrophy N40.0 Hyperlipidemia E78.5 COPD (chronic obstructive pulmonary disease) J44.9 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 Atherosclerosis of coronary artery I25.10 Medical History Medical History Parkinson's disease Allergic rhinitis Adjustment disorder Refusal of blood transfusions as patient is [place] RLS (restless legs syndrome) HTN (hypertension) Surgical History Surgical History 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) 02/20/20 Hx of tonsillectomy History of inguinal hernia repair Left Hx of meniscectomy of right knee Tobacco Smoking/Tobacco Use Status: Former Tobacco Use Alcohol Alcohol Intake: current Alcohol intake frequency: holidays/special occasions only Substance Use Substance use: Never Substance use type: does not use Vital Signs and Lab Results Vital Signs Most Recent Vital Signs in EMR: Most Recent Vital Signs Temp Pulse Resp BP Pulse Ox 36.7 C 55 L 16 172/83 H 95 05/31/23 10:06 05/31/23 10:27 05/31/23 10:27 05/31/23 10:27 05/31/23 10:27 Lab Results Blood Type / Crossmatch: No Data to Display Complete Blood Count: White Blood Count 4.93 10^3/uL (4.4-10.8) 05/16/23 11:22 Red Blood Count 4.11 10^6/uL (4.36-5.78) L 05/16/23 11:22 Hemoglobin 13.2 g/dL (13.5-17.5) L 05/16/23 11:22 Hematocrit 39.2 % (40.0-50.0) L 05/16/23 11:22 Platelet Count 223 10^3/uL (130-400) 05/16/23 11:22 Complete Metabolic Panel: Sodium 139 mmol/L (136-145) 05/16/23 11:22 Potassium 4.9 mmol/L (3.5-5.1) 05/16/23 11:22 Chloride 103 mmol/L (98-107) 05/16/23 11:22 Carbon Dioxide 30.6 mmol/L (21.0-32.0) 05/16/23 11:22 BUN 31 mg/dL (7-18) H 05/16/23 11:22 Creatinine 1.1 mg/dL (0.70-1.30) 05/16/23 11:22 Est GFR (CKD-EPI 2020) 69.57 (mL/min/1.73m2) 05/16/23 11:22 Calcium 9.6 mg/dL (8.5-10.1) 05/16/23 11:22 Glucose 117 mg/dL (74-106) H 05/16/23 11:22 Liver Function Panel: No Data to Display Coagulation Panel: No Data to Display Cardiac Panel: No Data to Display Arterial Blood Gas: No Data to Display Venous Blood Gas: No Data to Display Pancreas Panel: No Data to Display Thyroid Panel: No Data to Display Infectious Disease: No Data to Display Blood Cultures: No Data to Display Toxicology Panel: No Data to Display Imaging and Studies Imaging and Studies Study information below may be from another EMR and interpreted by another provider. Please see original notes in EMR for more complete details. EKG Summary: EKG PATIENT NAME: MARIELENA ZUNIGA UNIT #: [id number] ORDERING PROVIDER: Lion Hercules M.D. PRIMARY CARE PROVIDER: KAREN JENNINGS MD DATE/TIME OF SERVICE: 02/20/20 1039 : 1945 PERFORMING LOCATION: [facility] APPROVED REPORT Exam: Resting ECG Patient Location: I HR:67 bpm ECG Measurements Heart Rate 67 AXIS AL 185 P 49 QRSd 94 QRS 9 QT 406 T17 QTc 428 Conclusion Sinus rhythm...normal P axis, V-rate 60- 99 Ventricular trigeminy...trigeminy string>6 w/ V complexes Probable left atrial enlargement...P >50mS, <-0.10mV V1 <Electronically signed by EDUARDO BISWAS MD in OV> E-Sign Date: 02/20/20 E-Sign Time: 1204 Anesthesia Assessment and Plan Anesthesia History Personal History: No History of Anesthesia Complications Family History: No Family History of Anesthesia Complications Exercise Tolerance Exercise Tolerance: Metabolic Equivalents>4 Pertinent Negatives Pertinent Negatives: No Symptoms of GERD, No Major Cardiovascular Symptoms or Complaints, No Major Pulmonary Symptoms or Complaints and No History of CVA/TIA Cardiac & Pulmonary Exam Cardiac Exam: Normal S1/S2 Heart Sounds Pulmonary Exam: Clear Bilateral Breath Sounds Implantable Cardiac Device Does patient have a Pacemaker or an ICD?: No Airway Exam Known Difficult Airway: No Mallampati Class: 4 Mouth Opening: Normal (> 3cm) Thyromental Distance: Greater than 3 cm Neck Range of Motion: Full ROM Neck Circumference: Normal Teeth Condition: Normal Dentition ASA Classification ASA Score: ASA 3 Emergency Case?: No NPO Status NPO Status: NPO Clears >2 hours, Solids >8 hours Anesthesia Plan Resuscitation Status: Full Code Anesthesia Technique: Spinal Anesthesia Airway Planned: Natural Airway Monitors Used: Standard Monitors and SedLine
[2023-05-31 11:10] VITALS: BMI 34.8
[2023-05-31] MEDS: Carbidopa 25/Levodopa 100 TAB PO (11:53)
[2023-05-31 12:08] VITALS: BP 215/91; PULSE 54; RESP 14; TEMP 37; O2SAT 95
--- NOTE | 2023-05-31 12:18 | W.PM.DSUDISC ---
Discharge Plan Disposition Patient Disposition: Home Condition: Good Discharge Details Reason For Visit: Left knee DJD Attending Provider: Lion Hercules Primary Care Provider: Rebeca Portillo Home Meds and New Rx's Prescriptions: New acetaminophen 500 mg tablet 1,000 mg PO Q8H PRN Qty: 90 0RF Rx Instructions: Take two tablets up to every 8 hours as needed for pain aspirin 81 mg tablet,delayed release (DR/EC) 81 mg PO BID 30 Days Qty: 60 0RF docusate sodium [Colace] 100 mg capsule 100 mg PO BID Qty: 30 0RF dexamethasone 4 mg tablet 4 mg PO DAILY Qty: 2 0RF Rx Instructions: Take one tablet once daily for two days gabapentin 300 mg capsule 300 mg PO QHS Qty: 14 0RF Rx Instructions: Take one tablet at bedtime pantoprazole 40 mg tablet,delayed release (DR/EC) 40 mg PO DAILY Qty: 14 0RF oxycodone 5 mg tablet 5 mg PO Q4H PRNQty: 18 0RF Rx Instructions: Take one tablet up to every 4 hours as needed for severe postoperative pain Continued ropinirole 0.5 mg tablet 1 mg PO QHS Rx Instructions: administer 1-3 hours before bedtime metoprolol succinate 100 mg tablet extended release 24 hr 100 mg PO DAILY celecoxib 200 mg capsule 200 mg PO BID Qty: 60 3RF carbidopa-levodopa 25-100 mg tablet 1 tab PO QID fluticasone propionate [Allergy Relief (fluticasone)] 50 mcg/actuation spray,suspension 2 spray intranasal DAILY Rx Instructions: administer into each nostril folic acid 1 mg tablet 1 mg PO DAILY methotrexate sodium 2.5 mg tablet 10 mg PO QWEEK tamsulosin 0.4 mg capsule 0.8 mg PO DAILY tramadol 50 mg tablet 50 mg PO BID PRN Discontinued acetaminophen [Tylenol Extra Strength] 500 mg tablet 500 mg PO BID PRN acetaminophen 500 mg tablet 500 mg PO Q6H PRN (Reason: pain) Qty: 60 2RF Discharge Instructions Additional Instructions: Total Knee Discharge Instructions Activity: The most important activity is to walk and to work on gentle motion (both flexion and extension). You should try to take short walks a few times a day. It is important that when resting you work on keeping the knee straight. Avoid putting a pillow behind the knee as this will encourage flexion. Work on range of motion exercises as provided by Physical Therapy. - Start outpatient physical therapy within 2 weeks. - You should wear the PAT hose on both legs for 2 weeks. You may remove these at night. You may also use any compression sock in place of the PAT hose. - Utilize [employer] to review exercises, see videos on exercises and obtain basic information pertaining to your surgery and your recovery. Dressing: Remove the Brent wrap by 2 days after your surgery and put on the PAT stocking given to you from the hospital. Keep the surgical dressing (underneath the BRENT wrap) in place for at least one week. After the first week it may be removed and replaced with light gauze and tape or nothing. The wound and dressing may get wet after 3 days but avoid soaking the dressing or otherwise it will need to be changed. Many people prefer covering the dressing with cling wrap (saran wrap) to minimize it from getting soaked. If it gets wet, just pat dry. If it starts to peel off then it will need to be changed. Medications: - You should take Tylenol and anti-inflammatory Celebrex as your primary pain control medications. If the Celebrex is too expensive or not covered, please call the office for another alternative (Advil/Ibuprofen or Naproxen/Aleve) - You have been prescribed a stronger pain medication Oxycodone for breakthrough pain, take as needed as prescribed. - You have also been prescribed a stomach acid reduction agent Pantoprozole to help reduce stomach acid and reflux. - You have been prescribed Gabapentin to take at night for restlessness and nerve pain. - You will be taking Aspirin 81mg twice a day for DVT prevention unless instructed otherwise. - You have also been prescribed Decadron to take to control post-operative nausea and pain. You will start this tomorrow. - If you have constipation you should take Colace (which has been prescribed) or Miralax (which is available [id number]). It takes most people 3-4 days to have a bowel movement. Follow-up: 2 weeks If you have any acute concerns or questions, please do not hesitate to contact the office at [phone]. You may contact Dr. Hercules with any questions after hours through the hospital at [phone] or on his cell phone at [phone]. Referrals: Lion Hercules MD [ [facility] STAFF PHYSICIAN] - Equipment/Supplies: Walker Activity:: Elevate Remove Dressings/Wound Care:: Do Not Remove Shower/Bathe:: 72 hours and Cover Diet:: As Tolerated Discharge Orders Discharge Orders: Discharge Order (Routine); Ordered 05/31/23 Ordered By: Sara Rosenbaum
== END 2023-05-31 09:23 | disposition home or self-care (01) ==
PROVIDERS: PCP Internal Medicine; Visit Provider Student in an Organized Health Care Education/Training Program
DX: M17.12 Unilateral primary osteoarthritis, left knee (principal); I10 Essential (primary) hypertension; Z53.09 Procedure and treatment not carried out because of other contraindication

== ENCOUNTER 2023-07-06 07:31 | Observation (INO) | payer MEDICARE, SELFPAY ==
[2023-07-06] VITALS (16 sets, daily range): BP systolic 109–159; BP diastolic 59–100; PULSE 60–70; RESP 14–20; TEMP 35.7–37.1; O2SAT 94–98; BMI 34.8
--- NOTE | 2023-07-06 09:21 | W.PM.DSUDISC ---
Date of service: 07/06/23 Time of Service: 09:22 Discharge Plan Disposition Patient Disposition: Home Condition: Good Discharge Details Reason For Visit: L TKR Attending Provider: Lion Hercules Primary Care Provider: Rebeca Portillo Home Meds and New Rx's Prescriptions: New acetaminophen 500 mg tablet 1,000 mg PO TID Qty: 90 3RF aspirin 81 mg tablet,delayed release (DR/EC) 81 mg PO BID Qty: 60 0RF celecoxib 200 mg capsule 200 mg PO BID Qty: 60 0RF dexamethasone 4 mg tablet 4 mg PO DAILY Qty: 2 0RF gabapentin 300 mg capsule 300 mg PO QHS Qty: 14 0RF pantoprazole 40 mg tablet,delayed release (DR/EC) 40 mg PO DAILY Qty: 30 0RF oxycodone 5 mg tablet 5 mg PO Q4H MDD 6 tabs PRN (Reason: pain) Qty: 20 0RF Continued ropinirole 0.5 mg tablet 1 mg PO QHS Rx Instructions: administer 1-3 hours before bedtime metoprolol succinate 100 mg tablet extended release 24 hr 100 mg PO DAILY carbidopa-levodopa 25-100 mg tablet 1 tab PO QID fluticasone propionate [Allergy Relief (fluticasone)] 50 mcg/actuation spray,suspension 2 spray intranasal DAILY Rx Instructions: administer into each nostril folic acid 1 mg tablet 1 mg PO DAILY methotrexate sodium 2.5 mg tablet 10 mg PO QWEEK tamsulosin 0.4 mg capsule 0.8 mg PO DAILY chlorthalidone 25 mg tablet 12.5 mg PO DAILY Patient Comments: TAKE 1/2 (ONE-HALF) TABLET BY MOUTH ONCE DAILY Discontinued celecoxib 200 mg capsule 200 mg PO BID Qty: 60 3RF tramadol 50 mg tablet 50 mg PO BID PRN Discharge Instructions Additional Instructions: Total Knee Discharge Instructions Activity: The most important activity is to walk and to work on gentle motion (both flexion and extension). You should try to take short walks a few times a day. It is important that when resting you work on keeping the knee straight. Avoid putting a pillow behind the knee as this will encourage flexion. Work on range of motion exercises as provided by Physical Therapy. - Start outpatient physical therapy within 2 weeks. - You should wear the PAT hose on both legs for 2 weeks. You may remove these at night. You may also use any compression sock in place of the PAT hose. - Utilize [employer] to review exercises, see videos on exercises and obtain basic information pertaining to your surgery and your recovery. Dressing: Remove the Brent wrap by 2 days after your surgery and put on the PAT stocking given to you from the hospital. Keep the surgical dressing (underneath the BRENT wrap) in place for at least one week. After the first week it may be removed and replaced with light gauze and tape or nothing. The wound and dressing may get wet after 3 days but avoid soaking the dressing or otherwise it will need to be changed. Many people prefer covering the dressing with cling wrap (saran wrap) to minimize it from getting soaked. If it gets wet, just pat dry. If it starts to peel off then it will need to be changed. Medications: - You should take Tylenol and anti-inflammatory Celebrex as your primary pain control medications. If the Celebrex is too expensive or not covered, please call the office for another alternative (Advil/Ibuprofen or Naproxen/Aleve) - You have been prescribed a stronger pain medication Oxycodone for breakthrough pain, take as needed as prescribed. - You have also been prescribed a stomach acid reduction agent Pantoprozole to help reduce stomach acid and reflux. - You have been prescribed Gabapentin to take at night for restlessness and nerve pain. - You will be taking Aspirin 81mg twice a day for DVT prevention unless instructed otherwise. - You have also been prescribed Decadron to take to control post-operative nausea and pain. You will start this tomorrow. - If you have constipation you should take Colace or Miralax (both [id number]). It takes most people 3-4 days to have a bowel movement. Follow-up: 2 weeks If you have any acute concerns or questions, please do not hesitate to contact the office at [phone]. You may contact Dr. Hercules with any questions after hours through the hospital at [phone] or on his cell phone at [phone]. Referrals: Lion Hercules MD [ [facility] STAFF PHYSICIAN] - Equipment/Supplies: Walker Activity:: Activity as Tolerated Shower/Bathe:: 72 hours Diet:: As Tolerated DS: Diagnosis Discharge Diagnosis (1) Osteoarthritis of left knee: Status: Chronic
--- NOTE | 2023-07-06 09:25 | ANES.PREOP_ITS ---
General Info Date of Service Date Performed: 07/06/23 Height: 5 ft 10 in Weight: 110.223 kg Body Mass Index (BMI): 34.8 Surgical Procedure: Operation Date: 07/06/23 12:25 Proposed Procedure Side Surgeon p Knee Total Arthroplasty, Cementless CR Left Lion Hercules MD Meds Allergies and Home Medications Allergies Allergy/AdvReac Type Severity Reaction Status Date / Time No Known Allergies Allergy Verified 07/06/23 10:08 Home Medication Medication Instructions Recorded ropinirole 0.5 mg tablet 1 mg PO QHS 02/14/20 metoprolol succinate 100 mg 100 mg PO DAILY 06/05/20 tablet,extended release 24 hr carbidopa 25 mg-levodopa 100 mg 1 tab PO QID 01/25/23 tablet fluticasone propionate 50 2 spray intranasal DAILY 01/25/23 mcg/actuation nasal spray,suspension (Allergy Relief (fluticasone)) folic acid 1 mg tablet 1 mg PO DAILY 01/25/23 methotrexate sodium 2.5 mg tablet 10 mg PO QWEEK 01/25/23 tamsulosin 0.4 mg capsule 0.8 mg PO DAILY 01/25/23 chlorthalidone 25 mg tablet 12.5 mg PO DAILY 07/01/23 acetaminophen 500 mg tablet 1,000 mg (2 x 500 mg) PO TID #90 07/06/23 tabs aspirin 81 mg tablet,delayed 81 mg PO BID #60 tabs 07/06/23 release celecoxib 200 mg capsule 200 mg PO BID #60 caps 07/06/23 dexamethasone 4 mg tablet 4 mg PO DAILY #2 tabs 07/06/23 gabapentin 300 mg capsule 300 mg PO QHS #14 caps 07/06/23 oxycodone 5 mg tablet 5 mg PO Q4H PRN pain #20 tabs 07/06/23 pantoprazole 40 mg tablet,delayed 40 mg PO DAILY #30 tabs 07/06/23 release solifenacin 5 mg tablet 5 mg PO bladder 07/06/23 Current Visit Medications: Current Medications Generic Name Dose Route Start Last Admin Trade Name Freq PRN Reason Stop Dose Admin Acetaminophen 1,000 mg 07/06/23 06:00 Acetaminophen 500 Mg Tab PO 08/05/23 05:59 PREOP MARLON Acetaminophen 1,000 mg 07/06/23 14:00 Acetaminophen 500 Mg Tab PO 08/05/23 13:59 TID PRN PRN Analgesia Celecoxib 400 mg 07/06/23 06:00 Celecoxib 200 Mg Cap PO 08/05/23 05:59 PREOP MARLON Docusate Sodium 100 mg 07/06/23 07:31 Docusate Sodium 100 Mg Cap PO 08/05/23 07:30 BID PRN PRN Constipation Gabapentin 300 mg 07/06/23 06:00 Gabapentin 300 Mg Cap PO 08/05/23 05:59 PREOP MARLON Ringer's Solution 1,000 mls @ 80 mls/hr 07/06/23 06:00 IV 07/06/23 23:59 INFUSION MARLON Cefazolin Sodium 3,000 mg/ 100 mls @ 200 mls/hr 07/06/23 06:00 Sodium Chloride IVPB 07/06/23 23:59 PREOP MARLON Tranexamic Acid/Sodium Chloride 1,000 mg in 100 mls @ 600 mls/hr 07/06/23 06:00 IVPB 08/05/23 05:59 PREOP MARLON IV Miscellaneous Supplies 1 each 07/06/23 06:00 Iv Access IV 07/06/23 23:59 DIRECTED MARLON Ondansetron HCl 4 mg 07/06/23 07:31 Ondansetron 4 Mg/2 Ml Vial IVP 08/05/23 07:30 Q6H PRN PRN Nausea Oxycodone HCl 0 mg 07/06/23 07:31 Oxycodone 5 Mg Tab PO 08/05/23 07:30 Q3H PRN PRN Pain Polyethylene Glycol 17 gm 07/06/23 07:31 Polyethylene Glycol 3350 17 Gm Packet PO 08/05/23 07:30 BID PRN PRN Constipation Sodium Chloride 0 ml 07/06/23 06:00 Normal Saline Flush 10 Ml Syr IV 07/06/23 23:59 PRN PRN Sodium Chloride 0 ml 07/06/23 06:00 Normal Saline 10 Ml Vial IJ 07/06/23 23:59 DIRECTED PRN Sterile Water 0 ml 07/06/23 06:00 Water,Injection,Sterile 10 Ml Vial IJ 07/06/23 23:59 DIRECTED PRN PFSH Active Problems Active Problems: Problem Status Onset Code Osteoarthritis of left knee M17.12 Onychomycosis B35.1 Obesity E66.9 Prostatic hypertrophy N40.0 Hyperlipidemia E78.5 COPD (chronic obstructive pulmonary disease) J44.9 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 Atherosclerosis of coronary artery I25.10 Medical History Medical History Parkinson's disease Allergic rhinitis Adjustment disorder Refusal of blood transfusions as patient is L[employer] day RLS (restless legs syndrome) HTN (hypertension) Surgical History Surgical History 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) 02/20/20 Hx of tonsillectomy History of inguinal hernia repair Left Hx of meniscectomy of right knee Tobacco Smoking/Tobacco Use Status: Former Tobacco Use Alcohol Alcohol Intake: current Alcohol intake frequency: holidays/special occasions only Substance Use Substance use: Never Substance use type: does not use Vital Signs and Lab Results Lab Results Blood Type / Crossmatch: No Data to Display Complete Blood Count: 2 No Data to Display Complete Metabolic Panel: No Data to Display Liver Function Panel: No Data to Display Coagulation Panel: No Data to Display Cardiac Panel: No Data to Display Arterial Blood Gas: No Data to Display Venous Blood Gas: No Data to Display Pancreas Panel: No Data to Display Thyroid Panel: No Data to Display Infectious Disease: No Data to Display Blood Cultures: No Data to Display Toxicology Panel: No Data to Display Imaging and Studies Imaging and Studies Study information below may be from another EMR and interpreted by another provider. Please see original notes in EMR for more complete details. EKG Summary: EKG PATIENT NAME: MARIELENA ZUNIGA UNIT #: [id number] ORDERING PROVIDER: Lion Hercules M.D. PRIMARY CARE PROVIDER: KAREN PORTILLO MD DATE/TIME OF SERVICE: 02/20/20 1039 : 1945 PERFORMING LOCATION: [facility] APPROVED REPORT Exam: Resting ECG Patient Location: I HR:67 bpm ECG Measurements Heart Rate 67 AXIS NH 185 P 49 QRSd 94 QRS 9 QT 406 T17 QTc 428 Conclusion Sinus rhythm...normal P axis, V-rate 60- 99 Ventricular trigeminy...trigeminy string>6 w/ V complexes Probable left atrial enlargement...P >50mS, <-0.10mV V1 <Electronically signed by EDUARDO BISWAS MD in OV> E-Sign Date: 02/20/20 E-Sign Time: 1204 Anesthesia Assessment and Plan Anesthesia History Personal History: No History of Anesthesia Complications Family History: No Family History of Anesthesia Complications Exercise Tolerance Exercise Tolerance: Metabolic Equivalents>4 Pertinent Negatives Pertinent Negatives: No Major Pulmonary Symptoms or Complaints and No History of CVA/TIA Cardiac & Pulmonary Exam Cardiac Exam: Normal S1/S2 Heart Sounds Pulmonary Exam: Clear Bilateral Breath Sounds Implantable Cardiac Device Does patient have a Pacemaker or an ICD?: No Airway Exam Known Difficult Airway: No Mallampati Class: 4 Mouth Opening: Normal (> 3cm) Thyromental Distance: Greater than 3 cm Neck Range of Motion: Full ROM Neck Circumference: Normal Teeth Condition: Normal Dentition ASA Classification ASA Score: ASA 3 Emergency Case?: No NPO Status NPO Status: NPO Clears >2 hours, Solids >8 hours Anesthesia Plan Resuscitation Status: Full Code Anesthesia Technique: Spinal Anesthesia Airway Planned: Natural Airway Pain Management: Surgeon and patient request nerve block Monitors Used: Standard Monitors Preoperative Comments:: 77 yo male patient here for TKA Recent visit with blood pressures consistently above 200 systolic, please see previous ANES preoperative note. Patient was cancelled due to uncontrolled BPs and was referred to Dr. Portillo, patient PCP. Please see that scanned document. Of note did verify BP with NIBP and manual cuff. Cuff size appropriate. Chlorthalidone added and salt restricted. Patient blood pressure today:
--- NOTE | 2023-07-06 10:28 | W.PREOPHP ---
Assessment and Plan Assessment and plan (1) Osteoarthritis of left knee: Status: Chronic Assessment and plan: Howard is a 77-year-old who has known arthritis of the left knee. He is here today for left knee replacement. Please see the previous office note for complete detailed history. He has since seen his primary care provider and worked on his salt intake to decrease his blood pressure. He is ready to proceed with left knee replacement. I went over in detail the possible complications of knee replacement. These include but are not limited to bleeding, infection, pain, stiffness, weakness, damage to nerves, damage to vessels, damage to muscle and tendon, fracture, leg length inequality, wound healing complications, instability, component loosening, and blood clot. Questions were answered. I again expressed that this is a surgery to improve functional quality of life. After a review of the presented information and risks, Howard desired to proceed. History of Present Illness Narrative: Howard is a 77-year-old who has ongoing left knee pain. He was initially planned for a left knee replacement last month. Unfortunately he had significant hypertension which was not coming down with associated headaches. He has since decreased salt intake. He is seen his primary care provider. He has been cleared for surgery with normal blood pressure readings at home and in the PCP office. Review of Systems All systems reviewed & are unremarkable except as noted in HPI and below PFSH All Active Problems Osteoarthritis of left knee (Chronic) Onychomycosis (Acute) Obesity (Chronic) Prostatic hypertrophy (Acute) Hyperlipidemia (Acute) COPD (chronic obstructive pulmonary disease) (Chronic) Calculus of kidney and ureter (Acute) pt reports questionable cyst of the kidney Atherosclerosis of coronary artery (Acute) Medical History Parkinson's disease Allergic rhinitis Adjustment disorder Refusal of blood transfusions as patient is [employer] RLS (restless legs syndrome) HTN (hypertension) Surgical History 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) 02/20/20 Hx of tonsillectomy History of inguinal hernia repair Left Hx of meniscectomy of right knee Social History Smoking/Tobacco Use Status: Former Tobacco Use Quit Date: 04/11/71 Smoking risk assessment performed?: Yes Alcohol Intake: current Alcohol Intake frequency: holidays/special occasions only Drug use: Never Substance use type: does not use Housing: house Current gender identity: male Do you feel safe at home: Yes Do you feel safe in your relationship?: Yes Meds Allergies and Home Medications Allergies Allergy/AdvReac Type Severity Reaction Status Date / Time No Known Allergies Allergy Verified 07/06/23 10:08 Home Medications Medication Instructions Recorded Confirmed Type ropinirole 0.5 mg tablet 1 mg PO QHS 02/14/20 07/05/23 History metoprolol succinate 100 mg 100 mg PO DAILY 06/05/20 07/05/23 History tablet,extended release 24 hr carbidopa 25 mg-levodopa 100 mg 1 tab PO QID 01/25/23 07/05/23 History tablet fluticasone propionate 50 2 spray intranasal DAILY 01/25/23 07/05/23 History mcg/actuation nasal spray,suspension (Allergy Relief (fluticasone)) folic acid 1 mg tablet 1 mg PO DAILY 01/25/23 07/05/23 History methotrexate sodium 2.5 mg tablet 10 mg PO QWEEK 01/25/23 07/05/23 History tamsulosin 0.4 mg capsule 0.8 mg PO DAILY 01/25/23 07/05/23 History chlorthalidone 25 mg tablet 12.5 mg PO DAILY 07/01/23 07/01/23 History acetaminophen 500 mg tablet 1,000 mg (2 x 500 mg) PO TID #90 07/06/23 Rx tabs aspirin 81 mg tablet,delayed 81 mg PO BID #60 tabs 07/06/23 Rx release celecoxib 200 mg capsule 200 mg PO BID #60 caps 07/06/23 Rx dexamethasone 4 mg tablet 4 mg PO DAILY #2 tabs 07/06/23 Rx gabapentin 300 mg capsule 300 mg PO QHS #14 caps 07/06/23 Rx oxycodone 5 mg tablet 5 mg PO Q4H PRN pain #20 tabs 07/06/23 Rx pantoprazole 40 mg tablet,delayed 40 mg PO DAILY #30 tabs 07/06/23 Rx release Exam Const General: cooperative, healthy appearing, comfortable and no acute distress Resp Auscultation: clear to auscultation bilaterally Cardio Rate: regular rate Rhythm: regular rhythm
[2023-07-06] MEDS: Lactated Ringers 1,000 ML 80 ML IV ×2 (10:37→15:40)
[2023-07-06] MEDS: Celecoxib 200 MG CAP 400 MG PO (10:38)
[2023-07-06] MEDS: Gabapentin 300 MG CAP PO (10:38)
[2023-07-06] MEDS: Acetaminophen 500 MG TAB 1000 MG PO ×2 (10:39→15:38)
--- NOTE | 2023-07-06 12:00 | W.ANESNERVE ---
Nerve Block Single Injection Procedure Date and Time Date Performed: 07/06/23 Procedure Start: 11:49 Location Where Procedure Performed Procedure Location: Day Surgery Unit Reason Performed: Postoperative Analgesia Requesting Provider: Lion Hercules Timeout Performed Timeout Performed: Yes Monitoring Used ECG, Blood Pressure and SpO2 Sterility Sterility: Hand Hygiene, Surgical Cap, Surgical Mask, Sterile Gloves and Chlorhexidine Sedation Given During Procedure Sedation Given (Indicate Dose Given): Versed IV Dose:: 1 mg Patient Mental Status Patient Mental Status: Sedate with meaningful communication Nerve Block 1st Nerve Block: Laterality: Left Block Type: Adductor Canal Ultrasound Image Saved?: Yes Needle / Catheter Used: 100mm SonoPlex II Local Anesthetic Bolus (Indicate Dose Given): Lidocaine used for local infiltration of skin, Injected in 3-5ml increments after negative blood aspiration and Bupivacaine 0.25% Dose:: 15 ml Additives (Indicate Dose Given): Normal Saline Ultrasound: Sterile probe cover and gel used Nerve Stimulator: Supplement to Ultrasound use and No twitch or parasthesia noted < 0.5 mA Paresthesia: None Procedure Tolerated: No Complications and Patient tolerated well Procedure Outcome: Successful Performed By: Zion Contreras
[2023-07-06] MEDS: ceFAZolin 3,000 MG in Normal Saline 100 ML 200 MG IVPB (12:13)
[2023-07-06] MEDS: TRANEXAMIC ACID/SOD. CHL. 1,000 MG/100 ML BAG 600 MG IVPB (12:31)
--- NOTE | 2023-07-06 14:03 | ROE_ITS ---
Date of service: 07/06/23 Time of Service: 12:30 Operative Note Operative Note DATE OF PROCEDURE: 07/06/23 PRE-OP DIAGNOSIS: Left Knee Osteoarthritis POST-OP DIAGNOSIS: same PROCEDURE: Left Total Knee Replacement SURGEON: Lion Hercules SENIOR DEVOPS ENGINEER: Sherrell Morton ANESTHESIA TYPE: Spinal Refer to Anesthesia Record ESTIMATED BLOOD LOSS: 100 PATHOLOGY: none sent TOURNIQUET TIME: 0 COMPLICATIONS: None Patient was transported to: PACU Patient's condition: stable Implants: 1. Depuy Attune Cementless Cruciate Retaining Femoral Component, Size 8 2. Depuy Attune Cementless Fixed Bearing Tibial Component, Size 6 3. Depuy Attune 8x7mm CR/FB Poly 4. Depuy Attune Patellar Component, Size 35 Indications: I have seen Howard in clinic for symptoms of knee arthritis, confirmed with radiographic findings. He has exhausted nonoperative methods and was having significant limitations in daily function and desired better function and less pain. He had a successful knee replacement on the right side. I discussed the technical details of a knee replacement. I explained the risks of the procedure to include, but not limited to, bleeding, infection, pain, stiffness, fracture, damage to nerves and vessels, damage to muscles and tendons, loosening, need for repeat procedure, blood clot and cardiopulmonary demise. Despite these risks, he elected to proceed. Findings: There was significant signs of arthritis throughout the knee, primarily involving the medial compartment. The appearance of subchondral bone had increased density and areas of look to be some necrosis which may be consistent with an AVN diagnosis.. Procedure Description: Howard was greeted in the preoperative holding area where the correct side was identified and marked. The consent was reviewed with the patient and signed. The history and physical was updated. All questions were answered. Preoperative medications were administered: Acetaminophen 1000mg, Celebrex 400mg, and Gabapentin 300mg. An adductor canal block was then administered by the anesthesia team in the PACU. Howard was taken back to the operating room. A spinal anesthestic was then administered. The patient was placed into the supine position on the operating room table. A nonsterile tourniquet was placed high onto the leg but only used for cementing. Posts were placed for positioning during the pr ocedure. All bony prominences were well padded. Prophylactic antibiotics in the form of Cefazolin were administered. 1g of Tranxemic Acid was given intravenously within 30 minutes of incision. The left leg was then prepped with Chloraprep and draped in a standard fashion with impervious stockinette. A second prep with Chloraprep was performed prior to application of Iodine impregnated skin protection. A timeout to confirm correct identity, side and site, procedure, allergies, anesthesia, and medical concerns was performed. With the knee in some flexion, a midline incision was made overlying the knee. Full thickness skin flaps were raised once the extensor mechanism was encountered. These were raised medially and laterally. Any bleeding was controlled with electrocautery. Once the extensor mechanism was fully exposed, a medial parapatellar arthrotomy was performed in a flexed position. All bleeding from the arthrotomy and the geniculate arteries was coagulated. A medial subperiosteal peel was performed with electrocautery to the midcoronal plane. The fat pad was removed while keeping the patellar tendon protected. The anterior distal femur synovium was removed for later visualization. The ACL and PCL were resected and the anterior horn of the lateral meniscus was transected. The knee was then flexed with the patella everted. Large osteophytes from the tibia were removed. Large osteophytes from the femur were removed. Using a step drill, and based on preoperative templating, the femoral canal was entered. This was done with a step drill without any difficulty. The intramedullary distal femoral cut guide was inserted, set to a 5 degree valgus cut and 9mm cut thickness. The distal femoral cut guide was then held in position and pinned. With the soft tissues protected, the distal cut was performed. This was passed over a few times to ensure a planar cut. I then turned attention to the tibia. The extramedullary guide was placed onto the leg. The distal aspect was slid medial to adjust for position of center of ankle and stay in line with shaft of the tibia. Approximately 3-5 degrees of posterior slope was kept in the proximal cutting guide. The center of the guide was aligned with the PCL. The stylus was used to assess cut thickness. The medial side, most involved side, was set for a 4mm cut. This was then held in position and pinned into place with 2 additional pins and a cross pin for stability. The medial and lateral collateral ligaments were protected and the cut was performed. With this completed, it was assessed and noted to be of appropriate dimensions. The guide was removed. A spacer block was inserted and the knee was brought into extension. The 6mm spacer block provided full extension, without hyperextension and with stability of both the medial and lateral collateral ligaments was assessed. The pins from the femur and the tibia were then removed. The distal femur was then sized. The anterior stylus was placed onto the lateral ridge of the anterior femur. This indicated a size 8 femur. The external rotation of the guide was adjusted to 3 degrees to match the epicondylar axis, perpendicular to [place]?s line. The 4-in-1 cutting guide was the placed. The posterior medial femur cut was evaluated and appeared of good thickness. The spacer block was inserted underneath the cutting guide and stability was confirmed in 90 degrees of flexion. An abelardo wing was used to confirm appropriate position of the anterior cut to avoid notching. This cutting guide was ensured to be flush on the cut surface and then pinned into place with headed pins. While protecting the soft tissues, quad tendon, and collateral ligaments, the anterior and posterior cuts were performed with a saw. The central two pins were removed and the posterior and anterior chamfers were cut next. The notch-cutting guide was placed. This was pinned to lateralize the femoral component as much as possible while keeping it flush on the cut surface. This was then pinned into position. A reciprocating saw was used to make the notch cut. A rasp smoothed the cut surfaces. The medial and lateral menisci were re moved. A trial femoral component was then inserted, impacted down to the cut surfaces, and the lug holes were drilled. A provisional trial tibial component was placed and the knee was brought through range of motion. There was noted to be excellent extension and flexion. There was no significant instability. The patella was tracking without thumbs. A size 7mm polyethylene component provided the best range of motion and stability with less than 2mm gapping with medial and lateral stress and full extension without significant hyperextension. The tibial cut surface was fully exposed. The tibia was then sized as a 6. The tibia had been previously marked during trialing to correspond to the center of the tibial component to help with rotation. The trial was aligned to this sherrell, approximately rotated to the medial 1/3rd of the tibial tubercle. The trial was pinned into place. The tibia was prepared with a reamer and a keel punch and lug holes. The knee was then brought into extension and the patella was measured as 27mm. Using the patellar clamp and cut guide, this was resected to a flat surface with at least 13mm of thickness remaining. The size 35 patella fit the best. This was oriented and then clamped into position. The lugs were drilled. The trial components were removed. The final components were opened on the back table. The periosteal and capsular tissues, especially posteriorly, around the knee were then systematically injected with a periarticular cocktail consisting of 246mg of Ropivacaine, 0.5mg of Epinephrine, 0.08mg of Clonidine, and 30mg of Ketorolac, diluted to 100cc. On the back table, with the implants opened, the cement was mixed. One batch of high viscosity cement was prepared with vacuum assistance. After the cement was ready a small amount was placed on the cut surface of the patella and the patellar button was clamped into position and held. While the cement was hardening, the cementless knee components were placed. Starting with the tibial component, the tibia was subluxed anteriorly and the lug holes of the component were lined up. The tibia was then impacted with an impactor and mallet until the tibial component was in contact with the tibia. The final polyethylene component was inserted. Then, the femoral component was inserted. The lug holes were aligned and the component was impacted into position. The knee was irrigated with Surgiphor Betadine solution. This was allowed to sit in the knee for 3 minutes and then it was irrigated out with saline. After the cement had finally cured, approximately 15min, the clamp was removed from the patella and the knee was taken through range of motion. The patella was tracking with a no-thumbs technique. The capsule was then reapproximated with a No. 1 Vicryl at multiple locations. The capsule was finally closed with a No. 2 Stratafix, barbed suture. The second dosing of 1g TXA was started. Deep tissues were then reapproximated with 0 Vicryl and 2-0 Vicryl. The skin was closed with a running 3-0 Monocryl in a subcuticular fashion. This was reinforced with skin glue. A Mepilex silver dressing was applied along with a pior-in-wthzi ABDIRASHID wrap. A CryoCuff was applied. Howard was transferred to the hospital bed without difficulty an suffering no apparent complication. Howard has a good prognosis. Physical therapy will start today and without restrictions, weight-bearing as tolerated. Aspirin 81mg BID will be used for DVT prophylaxis.
--- NOTE | 2023-07-06 14:04 | W.ANESPOSTOP ---
Postoperative Evaluation Date, Time and Location Date Performed: 07/06/23 Time Performed: 14:04 Patient Location: PACU Vital Signs Most Recent Imported Vital Signs: Most Recent Vital Signs Temp Pulse Resp BP Pulse Ox 36.8 C 64 16 142/74 H 96 07/06/23 11:49 07/06/23 11:49 07/06/23 11:49 07/06/23 11:49 07/06/23 11:49 Pain Score Most Recent Pain Score: Most Recent Pain Score Pain Level 8 07/06/23 10:24 Patient denying pain at this time. Assessment Mental Status: Awake (Alert & Oriented to Patient Baseline) Airway and Respiratory Function: Patent airway with normal (patient baseline) respiratory exam Cardiovascular Function: Hemodynamically Stable Hydration Status: Adequately Hydrated Nausea & Vomiting: No Nausea or Vomiting Pain: Pt. Denies Any Pain Peripheral Nerve Block: Regional nerve block not resolved at time of post operative discharge (Adductor in place and spinal wearing off appropriately. Patient appropriate for transfer to floor. )
[2023-07-06] MEDS: fentaNYL 100 MCG/2 ML VIAL IVP ×2 (14:12→14:22)
[2023-07-06] MEDS: HYDROmorphone 2 MG/ML SYR IVP (14:33)
[2023-07-06] MEDS: Normal Saline 10 ML VIAL IJ (14:35)
[2023-07-06] MEDS: oxyCODONE 5 MG TAB PO (15:37)
[2023-07-06] MEDS: Carbidopa 25/Levodopa 100 TAB PO ×2 (16:48→20:21)
[2023-07-06] MEDS: rOPINIRole 0.5 MG TAB 1 MG PO ×2 (16:48→22:34)
--- NOTE | 2023-07-06 16:50 | PT.INIE ---
PT Notes Visit Reasons: OA L Knee Inpatient Physical Therapy Evaluation Date: 07/06/23 Referring Doctor: NIGHAT [facility] PT Orders: PT CONSULT: s/p left TKA Precautions: fall Patient Profile/Admitting Diagnosis: Patient admitted following left TKA, post-op day 0. Social History/Home Situation: Eze retired from a [employer]. He resides in a private home with his . Has 2 RAZIA with rail, then able to stay on first floor. Independent at baseline, but admits to some balance challenges since his diagnosis with PD 3 years ago. Typically ambulates with cane. Equipment Owned/DME: cane Subjective: Eze states that he's feeling good. He's looking forward to getting up and walking. Objective: General Observation: Resting in bed with left leg propped on pillows. Demonstrates approx 30* flexion in resting position. Mental Status: A&Ox3 Pain: 0/10 ROM: Right Upper Extremity: WFL Left Upper Extremity: WFL Right Lower Extremity: Hip and knee motion WFL Left Lower Extremity: Hip motion WFL. Left knee allows -5* extension to 90* flexion Strength: Right Upper Extremity: WFL Left Upper Extremity: WFL Right Lower Extremity: Hip flexion 5/5. Quads 5/5. HS 5/5. Ankle DF 5/5 Left Lower Extremity: Hip flexion 3/5 or greater. Functional quad strength allows SLR without extension lag. Ankle DF 4/5. Sensation: intact distally Bed Mobility/Transfers: supine-sit: supervision sit-stand: SBA, with cues for technique stand-sit: SBA, with cues for technique sit-supine: supervision Gait: Ambulates with FWW, CGA initially. Demonstrates slow, shuffling gait x 30', with LOB during turning requiring mod A for recovery. With cues, he's able to ambulate an additional 30' with FWW, with improved stride length and safety. Demonstrates big turning with excellent improvements in safety. Balance: Static Sitting: good Dynamic Sitting: good Static Standing: good Dynamic Standing: fair Special Tests: Mobility Limitations Standardized Measure [facility] AM-PAC 6 clicks Basic Mobility Inpatient Short Form: Raw Score: 22 CMS Score: 21% impairment Informed Consent/Education: Patient instructed in purpose of PT consult and plan of care. Treatment: Initial Evaluation (25000) Therapeutic Exercises ([id number]): Instructed in anti-embolic exercises, with written instructions written on white board Eliminate pillow under knee, and avoid sustained positioning in flexion Instructed in passive stretching into extension with ankle propped, 2-3 minutes at a time Instructed in BIG walking and BIG turns, with cues for increased amplitude with stride Assessment: Patient is a 77 year old male referred to physical therapy services with the diagnosis of left knee OA, now s/p left TKA, post op day 0. Patient presents with clinical signs and symptoms consistent with diagnosis, and complicated by Parkinson's disease. He currently demonstrates the following impairment level findings: 1. decreased left knee ROM 2. decreased LLE strength 3. gait impairments with shuffling gait pattern 4. balance impairments Impairments are contributing to the following functional limitations: 1. increased risk for falls due to acute on chronic gait impairments and balance deficits 2. decreased activity tolerance due to acute post-op status 3. decreased independence with transfers and ambulation Patient is assessed as a Low 00885 complexity based on the following: History: As above. Post-op status complicated by underlying gait and balance impairments related to PD. Examination: functional limitations as noted above Presentation: stable Decision Making: low complexity Goals: Goals X1 week 1. Supine-Sit : supervision 2. Sit-Supine : supervision 3. Sit-Stand : supervision 4. Stand-Sit : supervision 5. Bed-Chair : supervision with FWW 6. Chair-Bed : supervision with FWW 7. Gait : supervision with FWW x 50' 8. Stairs : ascend and descend 2 steps with bilat rails 9. Independent with home exercise program Plan of Care/Treatment Plan: 1-2x/day, 7 days/week x 1 week. Plan of care has been reviewed with the NET DEVELOPMENT MANAGER providing the service under Physical Therapy direction. Initiate Physical Therapy intervention for strengthening, bed mobility, transfers, gait, stairs, balance training, use of assistive device. DISCHARGE RECOMMENDATIONS: Home with no services (outpatient PT once determined appropriate by orthopedics) TREATMENT CODE/TIME: 89923, 14299 ([id number]) Peri Martinez, PT, DPT [facility] Please sign an return this page within 30 days if you agree with the above POC. Thank you! Physician Signature Date [facility] PFSH All Active Problems Osteoarthritis of left knee (Chronic) Onychomycosis (Acute) Obesity (Chronic) Prostatic hypertrophy (Acute) Hyperlipidemia (Acute) COPD (chronic obstructive pulmonary disease) (Chronic) Calculus of kidney and ureter (Acute) pt reports questionable cyst of the kidney Atherosclerosis of coronary artery (Acute) Medical History Parkinson's disease Allergic rhinitis Adjustment disorder Refusal of blood transfusions as patient is Religious RLS (restless legs syndrome) HTN (hypertension) Surgical History 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) 02/20/20 Hx of tonsillectomy History of inguinal hernia repair Left Hx of meniscectomy of right knee
[2023-07-06] MEDS: Aspirin E.C. 81 MG TABEC PO (20:21)
[2023-07-06] MEDS: ceFAZolin 2 GM/50 ML BAG IVPB (20:21)
[2023-07-07] MEDS: ceFAZolin 2 GM/50 ML BAG IVPB (03:36)
[2023-07-07 04:19] VITALS: BP 176/116; PULSE 63; RESP 18; TEMP 37; O2SAT 99
[2023-07-07 04:37] VITALS: BP 144/80
[2023-07-07] MEDS: oxyCODONE 5 MG TAB PO ×2 (04:42→09:35)
[2023-07-07 07:58] VITALS: BP 135/74; PULSE 64; RESP 15; TEMP 35.8; O2SAT 97
--- NOTE | 2023-07-07 07:58 | W.PM.DS.N ---
Date of service: 07/07/23 Time of Service: 07:40 DS: Diagnosis Discharge Diagnosis (1) Osteoarthritis of left knee: Status: Chronic Discharge Plan Disposition Patient Disposition: Home Condition: Good Discharge Details Reason For Visit: OA L Knee Admit Date/Time: 07/06/23 07:31 Admit Provider: Lion Hercules Attending Provider: Lion Hercules Primary Care Provider: Rebeca Portillo Hospital Course Hospital Course: Patient was admitted to the medical/surgical floor following the procedure. The surgery was tolerated well without any notable medical, surgical, or anesthetic complications. Mobilization began postoperatively. He was voiding spontaneously. Vitals were stable. Physical therapy worked with the patient and was cleared for discharge home. No acute medical issues. Pain was controlled on oral regimen. Home Meds and New Rx's Prescriptions: New acetaminophen 500 mg tablet 1,000 mg PO TID Qty: 90 3RF aspirin 81 mg tablet,delayed release (DR/EC) 81 mg PO BID Qty: 60 0RF celecoxib 200 mg capsule 200 mg PO BID Qty: 60 0RF dexamethasone 4 mg tablet 4 mg PO DAILY Qty: 2 0RF gabapentin 300 mg capsule 300 mg PO QHS Qty: 14 0RF pantoprazole 40 mg tablet,delayed release (DR/EC) 40 mg PO DAILY Qty: 30 0RF oxycodone 5 mg tablet 5 mg PO Q4H MDD 6 tabs PRN (Reason: pain) Qty: 20 0RF Continued ropinirole 0.5 mg tablet 1 mg PO QHS Patient Comments: pt takes a dose at 1513-1640 and then an additional dose before bedtime. Rx Instructions: administer 1-3 hours before bedtime metoprolol succinate 100 mg tablet extended release 24 hr 100 mg PO DAILY carbidopa-levodopa 25-100 mg tablet 1 tab PO QID fluticasone propionate [Allergy Relief (fluticasone)] 50 mcg/actuation spray,suspension 2 spray intranasal DAILY Rx Instructions: administer into each nostril folic acid 1 mg tablet 1 mg PO DAILY methotrexate sodium 2.5 mg tablet 10 mg PO QWEEK tamsulosin 0.4 mg capsule 0.8 mg PO DAILY chlorthalidone 25 mg tablet 12.5 mg PO DAILY Patient Comments: TAKE 1/2 (ONE-HALF) TABLET BY MOUTH ONCE DAILY Discontinued celecoxib 200 mg capsule 200 mg PO BID Qty: 60 3RF tramadol 50 mg tablet 50 mg PO BID PRN No Action solifenacin 5 mg tablet 5 mg PO Discharge Instructions Additional Instructions: Total Knee Discharge Instructions Activity: The most important activity is to walk and to work on gentle motion (both flexion and extension). You should try to take short walks a few times a day. It is important that when resting you work on keeping the knee straight. Avoid putting a pillow behind the knee as this will encourage flexion. Work on range of motion exercises as provided by Physical Therapy. - Start outpatient physical therapy within 2 weeks. - You should wear the PAT hose on both legs for 2 weeks. You may remove these at night. You may also use any compression sock in place of the PAT hose. - Utilize [employer] to review exercises, see videos on exercises and obtain basic information pertaining to your surgery and your recovery. Dressing: Remove the Brent wrap by 2 days after your surgery and put on the PAT stocking given to you from the hospital. Keep the surgical dressing (underneath the BRENT wrap) in place for at least one week. After the first week it may be removed and replaced with light gauze and tape or nothing. The wound and dressing may get wet after 3 days but avoid soaking the dressing or otherwise it will need to be changed. Many people prefer covering the dressing with cling wrap (saran wrap) to minimize it from getting soaked. If it gets wet, just pat dry. If it starts to peel off then it will need to be changed. Medications: - You should take Tylenol and anti-inflammatory Celebrex as your primary pain control medications. If the Celebrex is too expensive or not covered, please call the office for another alternative (Advil/Ibuprofen or Naproxen/Aleve) - You have been prescribed a stronger pain medication Oxycodone for breakthrough pain, take as needed as prescribed. - You have also been prescribed a stomach acid reduction agent Pantoprozole to help reduce stomach acid and reflux. - You have been prescribed Gabapentin to take at night for restlessness and nerve pain. - You will be taking Aspirin 81mg twice a day for DVT prevention unless instructed otherwise. - You have also been prescribed Decadron to take to control post-operative nausea and pain. You will start this tomorrow. - If you have constipation you should take Colace or Miralax (both [id number]-[id number]). It takes most people 3-4 days to have a bowel movement. Follow-up: 2 weeks If you have any acute concerns or questions, please do not hesitate to contact the office at [phone]. You may contact Dr. Hercules with any questions after hours through the hospital at [phone] or on his cell phone at [phone]. Referrals: Lion Hercules MD [ [facility]FF [facility]YSICIAN] - Activity:: Activity as Tolerated Equipment/Supplies:: Walker Diet:: As Tolerated Discharge Orders Discharge Orders: Discharge Order (Routine); Ordered 07/07/23 Ordered By: Lion Hercules DS: Summary Time Spent with Patient providing and/or coordinating discharge services: Less than 30 minutes Status at Discharge Functional status at discharge: uses cane/walker Overall status at discharge: patient is progressing back to baseline Mental Status: mental status grossly normal Speech and Movement: speech and movement normal Mood: congruent mood Affect: normal affect Quality:SDOH Health Related Social Needs: No Data to Display Exam Narrative Exam Narrative: Sitting up in the bed. NAD. AAOx3. LLE dressing c/d/i. +SLR. +ADF/APF/EHL/FHL. SILT DP/SP/Tib. Psych Mental Status: mental status grossly normal Speech and Movement: speech and movement normal Mood: congruent mood Affect: normal affect DS: Data Vitals/I&O Vitals and I&O: Vital Signs Temperature 37.0 C 07/07/23 04:19 Temperature Source Temporal Artery Scan 07/07/23 04:19 Pulse 63 07/07/23 04:19 Pulse Rhythm Regular 07/07/23 00:30 Respiratory Rate 18 07/07/23 04:19 Respiratory Effort Normal, Non-Labored 07/07/23 00:30 Respiratory Depth Normal 07/07/23 00:30 Respiratory Pattern Normal 07/07/23 00:30 Blood Pressure 144/80 H 07/07/23 04:37 Blood Pressure Mean 96 07/06/23 11:49 Blood Pressure Position Supine 07/06/23 11:49 Pulse Oximetry 99 07/07/23 04:19 Respiratory End-tidal CO2 39 07/06/23 14:47 Oxygen Delivery Method Room Air 03/28/24 04:19 Oxygen Flow Rate 0 07/07/23 04:19 Pain Level 5 07/07/23 04:42 Comment Nurse notified. 07/07/23 04:19 Intake & Output 07/06/23 07/06/23 07/07/23 11:59 23:59 11:59 Intake Total 886 / 886 1050 / 1050 Output Total 300 / 300 875 / 875 Balance 586 / 586 175 / 175 Weight 110.223 kg Intake: IV 886 / 886 1050 / 1050 Output: Urine 200 / 200 875 / 875 Estimated Blood Loss 100 / 100 Other: Urine Color Straw Pale Urine Appearance Clear Clear Urine Odor None None Comment pT is due to void. urinal Emesis Description None Voiding Methods Urinal PFSH All Active Problems Osteoarthritis of left knee (Chronic) Onychomycosis (Acute) Obesity (Chronic) Prostatic hypertrophy (Acute) Hyperlipidemia (Acute) COPD (chronic obstructive pulmonary disease) (Chronic) Calculus of kidney and ureter (Acute) pt reports questionable cyst of the kidney Atherosclerosis of coronary artery (Acute) Medical History Parkinson's disease Allergic rhinitis Adjustment disorder Refusal of blood transfusions as patient is Evangelical RLS (restless legs syndrome) HTN (hypertension) Surgical History 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) 02/20/20 Hx of tonsillectomy History of inguinal hernia repair Left Hx of meniscectomy of right knee Social History Smoking/Tobacco Use Status: Former Tobacco Use Quit Date: 04/11/71 Smoking risk assessment performed?: Yes Alcohol Intake: current Alcohol Intake frequency: holidays/special occasions only Drug use: Never Substance use type: does not use Housing: house Current gender identity: male Do you feel safe at home: Yes Do you feel safe in your relationship?: Yes Time Spent with Patient Time Spent with Patient: <45 minutes Time was spent: preparing to see the patient(eg.review tests), counseling the patient and care coordination
[2023-07-07] MEDS: Tamsulosin 0.4 MG CAPCR 0.8 MG PO (08:39)
[2023-07-07] MEDS: Celecoxib 200 MG CAP PO (08:40)
[2023-07-07] MEDS: Carbidopa 25/Levodopa 100 TAB PO (08:40)
[2023-07-07] MEDS: Dexamethasone 4 MG TAB PO (08:40)
[2023-07-07] MEDS: Folic Acid 1 MG TAB PO (08:41)
[2023-07-07] MEDS: Aspirin E.C. 81 MG TABEC PO (08:42)
[2023-07-07] MEDS: Chlorthalidone 25 MG TAB 12.5 MG PO (08:45)
[2023-07-07] MEDS: Acetaminophen 500 MG TAB 1000 MG PO (09:32)
[2023-07-07] MEDS: Docusate Sodium 100 MG CAP PO (09:35)
--- NOTE | 2023-07-07 09:37 | PT.INTREAT ---
PT Notes Visit Reasons: OA L Knee Inpatient Physical Therapy Treatment Note [facility] Date: 07/07/23 PRECAUTIONS:TKA SUBJECTIVE: Pt reports he is sore this am but has not had his pain medication yet. OBJECTIVE: ? Therapeutic Activities (47904h[1]): Direct one-on-one instruction in dynamic activities to improve functional performance. ? BED MOBILITY/TRANSFERS? Sit-stand: CGA/SBA? Stand-sit: CGA/SBA ? Provided skilled cues and instruction on performance and technique throughout. Gait Training ([id number][]): Direct one-on-one instruction and skilled instruction in: [] employing an assistive device [] modified weight-bearing status [X] movement sequencing [] turning and movement with proper form [] Provided verbal cues for equipment management and technique [X] Provided instruction in gait pattern [] Patient education regarding pacing and breathing techniques to maximize activity tolerance? GAIT? Assistive Device: FWW? Weight bearing: WBAT Assist: CGA? Distance:? Approx 100ft? STAIRS:Clinic Stairs B rails step to 8 steps ? Therapeutic Exercises (95020z[]): Direct one-on-one instruction in therapeutic exercises to develop strength, endurance, range of motion and flexibility. ? Exercises ? Seated LAQ x 10 Hip abd x 10 Seated HR/TR x 10 Seated marching x 10 Brief ROM knee flexion to approx 95 degrees and knee ext approx -10 ASSESSMENT:? Pt required vc's for stride length and heel toe. Very motivated for PT. PLAN: D/C to home this afternoon. TREATMENT CODE/TIME: 9:15-9:35 (20) TA
== END 2023-07-07 11:32 | disposition home or self-care (01) ==
LOC: SUR 15:07 → MS 15:07
PROVIDERS: Admitting Provider Student in an Organized Health Care Education/Training Program; PCP Internal Medicine; Visit Provider Student in an Organized Health Care Education/Training Program
PROC: (CPT 27447; principal; 2023-07-06 12:15)
DX: M17.12 Unilateral primary osteoarthritis, left knee (principal); E66.9 Obesity, unspecified; J44.9 Chronic obstructive pulmonary disease, unspecified; I25.10 Atherosclerotic heart disease of native coronary artery without angina pectoris; B35.1 Tinea unguium; N40.0 Benign prostatic hyperplasia without lower urinary tract symptoms; E78.5 Hyperlipidemia, unspecified; G20.C Parkinsonism, unspecified; Z96.651 Presence of right artificial knee joint; I10 Essential (primary) hypertension; G25.81 Restless legs syndrome; N20.0 Calculus of kidney
CPT/HCPCS: 27447; C1776; 76942; 96365; 96366; 97110; 97161; 97530; G0378; J0665; J0690; J1170; J2001; J2250; J2401; J2405; J2704; J3010; J8540

== ENCOUNTER 2023-07-25 15:59 | Outpatient (CLI) | payer MEDICARE, SELFPAY ==
--- NOTE | 2023-07-25 10:45 | DI.RAD_ITS ---
Exam(s) XR KNEE LT 1V XR STANDING ALIGNMENT EXAM: XR STANDING ALIGNMENT and XR knee LT 1 V CLINICAL HISTORY: 1ST POST OP S/P L TKA. TECHNIQUE: 2D digital imaging was performed. Four images were obtained. COMPARISON: CR XR KNEE COMPLETE MIN 4V LT from 01/14/2023 CR XR STANDING ALIGNMENT from 03/21/2023 FINDINGS: BONES: The hips are well maintained. The patient now has bilateral total knee replacements. Orthope dic hardware appears in good position. No lucencies are seen around the recently placed left knee re placement. There is an enthesophyte at the superior left patella. There is persistent mild soft tis skylar swelling around the left knee. The ankles are well maintained.There is no significant leg length discrepancy. SOFT TISSUE: Extensive vascular calcifications are present. IMPRESSION: Stable bilateral total knee replacements. DATA REPOSITORY: RADIATION DOSE DELIVERED:
== END 2023-07-25 16:00 | disposition home or self-care (01) ==
LOC: DIORS 15:59
PROVIDERS: PCP Internal Medicine; Visit Provider Student in an Organized Health Care Education/Training Program
DX: Z96.652 Presence of left artificial knee joint (principal); Z47.1 Aftercare following joint replacement surgery
CPT/HCPCS: 73560; 77073

== ENCOUNTER 2023-08-19 07:14 | Day surgery (SDC) | payer MEDICARE, SELFPAY ==
--- NOTE | 2023-08-19 06:23 | W.ANESPRE ---
General Info Date of Service Date Performed: 08/19/23 Height: 5 ft 10 in Weight: 110.223 kg Body Mass Index (BMI): 34.8 Surgical Procedure: Operation Date: 08/19/23 09:40 Proposed Procedure Side Surgeon p Cataract Extraction with IOL Implant Right Sudeep White MD Meds Allergies and Home Medications Allergies Allergy/AdvReac Type Severity Reaction Status Date / Time No Known Allergies Allergy Verified 08/19/23 07:56 Home Medication Medication Instructions Recorded ropinirole 0.5 mg tablet 1 mg PO QHS 02/14/20 metoprolol succinate 100 mg 100 mg PO HS 06/05/20 tablet,extended release 24 hr carbidopa 25 mg-levodopa 100 mg 1 tab PO QID 01/25/23 tablet fluticasone propionate 50 2 spray intranasal DAILY 01/25/23 mcg/actuation nasal spray,suspension (Allergy Relief (fluticasone)) folic acid 1 mg tablet 1 mg PO DAILY 01/25/23 methotrexate sodium 2.5 mg tablet 10 mg PO QWEEK 01/25/23 tamsulosin 0.4 mg capsule 0.8 mg PO DAILY 01/25/23 chlorthalidone 25 mg tablet 12.5 mg PO DAILY 07/01/23 acetaminophen 500 mg tablet 1,000 mg (2 x 500 mg) PO TID #90 07/06/23 tabs aspirin 81 mg tablet,delayed 81 mg PO BID #60 tabs 07/06/23 release solifenacin 5 mg tablet 5 mg PO DAILY bladder 07/06/23 celecoxib 200 mg capsule 200 mg PO BID #60 caps 07/18/23 oxycodone 5 mg tablet 5 mg PO Q4H PRN pain #20 tabs 07/25/23 gabapentin 300 mg capsule 300 mg PO PRN 08/19/23 Current Visit Medications: Current Medications Generic Name Dose Route Start Last Admin Trade Name Freq PRN Reason Stop Dose Admin Acetaminophen 1,000 mg 08/19/23 06:00 Acetaminophen 500 Mg Tab PO 09/18/23 05:59 Q4H PRN PRN Balanced Salt Solution 500 ml 08/19/23 06:00 Balanced Salt Soln.-Plus 500 Ml Bag OP 09/18/23 05:59 DIRECTED [facility] Miscellaneous Medication 0 ml 08/19/23 06:00 Prednisolone 1%, Moxifloxacin 0.5%, Bromfenac 0.09% 5ml Btl OD 09/18/23 05:59 DIRECTED [facility] Miscellaneous Medication 0 ml 08/19/23 06:00 Tropicam./Phenyleph. 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 cataract, right eye H25.11 History of total left knee replacement 07/06/23 Z96.652 Onychomycosis B35.1 Obesity E66.9 Prostatic hypertrophy N40.0 Hyperlipidemia E78.5 COPD (chronic obstructive pulmonary disease) J44.9 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 Atherosclerosis of coronary artery I25.10 Medical History Medical History Parkinson's disease Allergic rhinitis Adjustment disorder Refusal of blood transfusions as patient is Orthodox RLS (restless legs syndrome) HTN (hypertension) Surgical History Surgical History 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) 02/20/20 Hx of tonsillectomy History of inguinal hernia repair Left Hx of meniscectomy of right knee Tobacco Smoking/Tobacco Use Status: Former Tobacco Use Alcohol Alcohol Intake: current Alcohol intake frequency: holidays/special occasions only Substance Use Substance use: Never Substance use type: does not use Vital Signs and Lab Results Vital Signs Most Recent Vital Signs in EMR: Temp Pulse Resp BP Pulse Ox 36.6 C 55 L 18 141/70 H 96 08/19/23 07:30 08/19/23 07:30 08/19/23 07:30 08/19/23 07:30 08/19/23 07:30 Lab Results Blood Type / Crossmatch: No Data to Display Complete Blood Count: No Data to Display Complete Metabolic Panel: No Data to Display Liver Function Panel: No Data to Display Coagulation Panel: No Data to Display Cardiac Panel: No Data to Display Arterial Blood Gas: No Data to Display Venous Blood Gas: No Data to Display Pancreas Panel: No Data to Display Thyroid Panel: No Data to Display Infectious Disease: No Data to Display Blood Cultures: No Data to Display Toxicology Panel: No Data to Display Imaging and Studies Imaging and Studies Study information below may be from another EMR and interpreted by another provider. Please see original notes in EMR for more complete details. EKG Summary: EKG PATIENT NAME: MARIELENA ZUNIGA UNIT #: [id number] ORDERING PROVIDER: Lion Hercules M.D. PRIMARY CARE PROVIDER: KAREN JENNINGS MD DATE/TIME OF SERVICE: 02/20/20 1039 : 1945 PERFORMING LOCATION: [facility] APPROVED REPORT Exam: Resting ECG Patient Location: I HR:67 bpm ECG Measurements Heart Rate 67 AXIS SC 185 P 49 QRSd 94 QRS 9 QT 406 T17 QTc 428 Conclusion Sinus rhythm...normal P axis, V-rate 60- 99 Ventricular trigeminy...trigeminy string>6 w/ V complexes Probable left atrial enlargement...P >50mS, <-0.10mV V1 <Electronically signed by EDUARDO BISWAS MD in OV> E-Sign Date: 02/20/20 E-Sign Time: 1204 Anesthesia Assessment and Plan Anesthesia History Personal History: No History of Anesthesia Complications Family History: No Family History of Anesthesia Complications Exercise Tolerance Exercise Tolerance: Metabolic Equivalents>4 Cardiac & Pulmonary Exam Cardiac Exam: Normal S1/S2 Heart Sounds Pulmonary Exam: Clear Bilateral Breath Sounds Implantable Cardiac Device Does patient have a Pacemaker or an ICD?: No Airway Exam Known Difficult Airway: No Mallampati Class: 4 Mouth Opening: Normal (> 3cm) Thyromental Distance: Greater than 3 cm Neck Range of Motion: Full ROM Neck Circumference: Normal Teeth Condition: Normal Dentition ASA Classification ASA Score: ASA 2 Emergency Case?: No NPO Status NPO Status: NPO Clears >2 hours, Solids >8 hours Anesthesia Plan Resuscitation Status: Full Code Anesthesia Technique: MAC Anesthesia Airway Planned: Natural Airway Monitors Used: Standard Monitors Preoperative Comments:: 77 yo male for cataract removal. Sig PMHx: HTN (uncontrolled in past - to the point of surgical postponement. chlorthalidone, metoprolol), coronary atherosclerosis, COPD, RLS, former smoker. Taoism.
[2023-08-19 07:30] VITALS: BP 141/70; PULSE 55; RESP 18; TEMP 36.6; O2SAT 96
[2023-08-19 08:11] VITALS: BMI 34.8
[2023-08-19] MEDS: Povidone-Iodine Ophth 30 ML BTL (08:53)
[2023-08-19] MEDS: Tetracaine 0.5% 4 ML BTL OD (08:53)
[2023-08-19] MEDS: Balanced Salt Soln.-PLUS 500 ML BAG OP (09:00)
[2023-08-19] MEDS: Duovisc Viscoelastic System EACH 1 EACH (09:00)
[2023-08-19] MEDS: Lidocaine 1% Pres-Free 5 ML VIAL (09:01)
[2023-08-19 09:20] VITALS: BP 162/88; PULSE 61; RESP 18; TEMP 36.4; O2SAT 99
--- NOTE | 2023-08-19 09:22 | W.PM.DSUDISC ---
Date of service: 08/19/23 Time of Service: 09:22 Discharge Plan Disposition Patient Disposition: Home Discharge Details Attending Provider: Sudeep White Primary Care Provider: Rebeca Portillo Home Meds and New Rx's Prescriptions: No Action ropinirole 0.5 mg tablet 1 mg PO QHS Patient Comments: pt takes a dose at 4729-2116 and then an additional dose before bedtime. Rx Instructions: administer 1-3 hours before bedtime oxycodone 5 mg tablet 5 mg PO Q4H MDD 6 tabs PRN (Reason: pain) Qty: 20 0RF metoprolol succinate 100 mg tablet extended release 24 hr 100 mg PO HS carbidopa-levodopa 25-100 mg tablet 1 tab PO QID fluticasone propionate [Allergy Relief (fluticasone)] 50 mcg/actuation spray,suspension 2 spray intranasal DAILY Rx Instructions: administer into each nostril folic acid 1 mg tablet 1 mg PO DAILY methotrexate sodium 2.5 mg tablet 10 mg PO QWEEK tamsulosin 0.4 mg capsule 0.8 mg PO DAILY celecoxib 200 mg capsule 200 mg PO BID Qty: 60 0RF chlorthalidone 25 mg tablet 12.5 mg PO DAILY Patient Comments: TAKE 1/2 (ONE-HALF) TABLET BY MOUTH ONCE DAILY acetaminophen 500 mg tablet 1,000 mg PO TID Qty: 90 3RF aspirin 81 mg tablet,delayed release (DR/EC) 81 mg PO BID Qty: 60 0RF solifenacin 5 mg tablet 5 mg PO DAILY gabapentin 300 mg capsule 300 mg PO PRN Discharge Instructions Stand Alone Forms: [facility] Post-Op Nicky Damon (DSU) Discharge Orders Discharge Orders: Discharge Order (Routine); Ordered 08/19/23 Ordered By: Sudeep White DS: Diagnosis Discharge Diagnosis (1) Nuclear age-related cataract, right eye: Status: Resolved
--- NOTE | 2023-08-19 09:22 | W.PM.OP ---
Date of service: 08/19/23 Time of Service: 09:22 Operative Note Operative Note DATE OF PROCEDURE: 08/19/23 PRE-OP DIAGNOSIS: Nuclear cataract, right eye POST-OP DIAGNOSIS: same PROCEDURE: Cataract extraction using phacoemulsification with intraocular lens implant, right eye SURGEON: Sudeep White ANESTHESIA TYPE: Local By Surgeon and MAC Refer to Anesthesia Record ESTIMATED BLOOD LOSS: 0 PATHOLOGY: none sent COMPLICATIONS: None Patient was transported to: same day Patient's condition: stable Implants: Cesar Clareon [id number] Indications: Progressive decreased vision due to cataract, right eye Procedure Description: CATARACT SURGERY OPERATIVE REPORT PREOPERATIVE DIAGNOSIS: Nuclear cataract, right eye POSTOPERATIVE DIAGNOSIS: Same OPERATION: Cataract extraction using phacoemulsification with posterior chamber intraocular lens implant, right eye. IOL: IOL Commercial Artist Lettering/Model: Cesar Clareon [id number] IOL Power: + 21.0 diopters IOL Serial Number: [id number] Optic Diameter: 6.0mm Haptic/Overall Diameter: 13.0mm PHACO INFO: Cesar anywayanydayurion Vision System with OZil and Active Fluidics Cumulative Dispersed Energy (CDE): 5.69 seconds SURGEON: Sudeep White MD, SHEN ANESTHESIA: Monitored Anesthesia Care (MAC), with local sub-tenon's anesthetic infiltration COMPLICATIONS: None SPECIMENS: None INDICATIONS FOR PROCEDURE: The patient is a 77-year-old male with history of diminished visual acuity in his right eyes secondary to the development of nuclear cataract. The option of cataract surgery was offered to the patient and he felt he was symptomatic enough that he wished to proceed. See office notes for detailed information. PROCEDURE: The correct surgical eye was identified and marked as the right eye and the pupil was dilated in the preoperative area using mydriatics and cycloplegics. The dilated pupil size was 6.0 mm. The patient elected to proceed without oral sedation. The patient was brought to the operating room where cardiopulmonary monitoring was instituted and surgical time-out was performed, confirming the correct operative eye and IOL power. Topical anesthesia was administered and ophthalmic povidone-iodine 5% was instilled into the conjunctival fornices. The riana-ocular area was prepped with Betadine 10% solution and draped in the usual sterile fashion for intraocular surgery, including an aperture drape. A Tegaderm transparent film dressing was cut in half and used to cover the lashes and lid margins. Care was taken to sequester the lashes and lid margins under the Tegaderm dressing. A lid speculum was placed between the lids of the operative eye and the Cesar LuxOR Revalia operating microscope was maneuvered into position. Reynaldo scissors were then used to make a conjunctival buttonhole approximately 6mm posterior to the limbus in the inferonasal quadrant. Blunt dissection was carried out to expose bare sclera, and a blunt-tipped sub-tenon?s anesthesia cannula was introduced and passed posteriorly along the globe where non-preserved plain lidocaine was injected into posterior sub-Tenon?s space. A sideport knife was used to make a paracentesis port. Intraocular phenylephrine/lidocaine was injected into the anterior chamber. The anterior chamber was then filled with viscoelastic. A keratome knife was used to construct a two--plane clear corneal tunnel extending 2.0mm into clear cornea. A flap was raised on the anterior capsule and capsulorhexis forceps were used to complete a continuous curvilinear capsulorhexis of 5.0 mm. Balanced salt solution was then used to perform cortical cleaving hydrodissection and nuclear hydrodelineation until the lens could be freely rotated within the capsular bag. The lens nucleus was then disassembled and removed within the capsular bag and iris plane using phacoemulsification. Residual cortical material was removed using the I/A handpiece. The posterior capsule was carefully polished to remove as much residual lens epithelial cells as safely possible. The capsular bag was then inflated and the anterior chamber deepened with cohesive viscoelastic. The lens implant described above was inserted into the capsular bag using the Cesar Autonome Injector. A Kuglen hook was used to dial the IOL into position. Residual viscoelastic was then removed first from posterior to the IOL, then from the anterior chamber using the I/A handpiece. The lens implant was noted to center nicely within the capsular bag. The incisions were stromally hydrated, and the anterior chamber was reformed using BSS. Then 0.5cc of moxifloxacin 1.0mg/ml were injected into the capsular bag and anterior chamber. The incisions were checked with a Weck spear and found to be secure. Several drops of ophthalmic povidone-iodine 5% were then applied to the eye followed by two drops of combination steroid/NSAID/antibiotic solution. The drapes were removed and a clear plastic protective eye shield was placed over the eye. The patient was then returned to Same Day Surgery in stable condition.
--- NOTE | 2023-08-19 09:40 | W.ANESPOSTOP ---
Postoperative Evaluation Date, Time and Location Date Performed: 08/19/23 Time Performed: 09:30 Patient Location: Day Surgery Unit Vital Signs Most Recent Imported Vital Signs: Most Recent Vital Signs Temp Pulse Resp BP Pulse Ox 36.4 C L 61 18 162/88 H 99 08/19/23 09:20 08/19/23 09:20 08/19/23 09:20 08/19/23 09:20 08/19/23 09:20 Pain Score Most Recent Pain Score: Most Recent Pain Score Pain Level 0 08/19/23 09:20 Assessment Mental Status: Awake (Alert & Oriented to Patient Baseline) Airway and Respiratory Function: Patent airway with normal (patient baseline) respiratory exam Cardiovascular Function: Hemodynamically Stable Hydration Status: Adequately Hydrated Nausea & Vomiting: No Nausea or Vomiting Pain: Pt. Denies Any Pain Peripheral Nerve Block: Patient did not receive a nerve block
== END 2023-08-19 09:50 | disposition home or self-care (01) ==
LOC: SUR 07:14
PROVIDERS: PCP Internal Medicine; Visit Provider Ophthalmology
PROC: (CPT 66984; principal; 2023-08-19 09:30)
DX: H25.11 Age-related nuclear cataract, right eye (principal); J44.9 Chronic obstructive pulmonary disease, unspecified; I10 Essential (primary) hypertension
CPT/HCPCS: 66984; 00123; V2632; J2003

== ENCOUNTER 2023-09-02 08:30 | Day surgery (SDC) | payer MEDICARE, SELFPAY ==
[2023-09-02 09:19] VITALS: BP 164/77; PULSE 57; RESP 16; TEMP 36.5; O2SAT 99
--- NOTE | 2023-09-02 09:35 | ANES.PREOP_ITS ---
General Info Date of Service Date Performed: 09/02/23 Height: 5 ft 10 in Weight: 112.9 kg Body Mass Index (BMI): 35.6 Surgical Procedure: Operation Date: 09/02/23 11:40 Proposed Procedure Side Surgeon p Cataract Extraction with IOL Implant Left Sudeep White MD Meds Allergies and Home Medications Allergies Allergy/AdvReac Type Severity Reaction Status Date / Time No Known Allergies Allergy Verified 09/02/23 09:13 Home Medication Medication Instructions Recorded ropinirole 0.5 mg tablet 1 mg PO QHS 02/14/20 metoprolol succinate 100 mg 100 mg PO HS 06/05/20 tablet,extended release 24 hr carbidopa 25 mg-levodopa 100 mg 1 tab PO QID 01/25/23 tablet fluticasone propionate 50 2 spray intranasal DAILY 01/25/23 mcg/actuation nasal spray,suspension (Allergy Relief (fluticasone)) folic acid 1 mg tablet 1 mg PO DAILY 01/25/23 methotrexate sodium 2.5 mg tablet 10 mg PO QWEEK 01/25/23 tamsulosin 0.4 mg capsule 0.8 mg PO DAILY 01/25/23 chlorthalidone 25 mg tablet 12.5 mg PO DAILY 07/01/23 acetaminophen 500 mg tablet 1,000 mg (2 x 500 mg) PO TID #90 07/06/23 tabs aspirin 81 mg tablet,delayed 81 mg PO BID #60 tabs 07/06/23 release solifenacin 5 mg tablet 5 mg PO DAILY bladder 07/06/23 celecoxib 200 mg capsule 200 mg PO BID #60 caps 07/18/23 oxycodone 5 mg tablet 5 mg PO Q4H PRN pain #20 tabs 07/25/23 gabapentin 300 mg capsule 300 mg PO HS PRN 08/19/23 Current Visit Medications: Current Medications Generic Name Dose Route Start Last Admin Trade Name Freq PRN Reason Stop Dose Admin Acetaminophen 1,000 mg 09/02/23 06:00 Acetaminophen 500 Mg Tab PO 10/02/23 05:59 Q4H PRN PRN Balanced Salt Solution 500 ml 09/02/23 06:00 Balanced Salt Soln.-Plus 500 Ml Bag OP 10/02/23 05:59 DIRECTED MARLON Miscellaneous Medication 0 ml 09/02/23 06:00 Prednisolone 1%, Moxifloxacin 0.5%, Bromfenac 0.09% 5ml Btl OS 10/02/23 05:59 DIRECTED MARLON Miscellaneous Medication 0 ml 09/02/23 06:00 09/02/23 09:25 Tropicam./Phenyleph. 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 Atherosclerosis of coronary artery I25.10 Medical History Medical History Parkinson's disease Allergic rhinitis Adjustment disorder Refusal of blood transfusions as patient is [employer] RLS (restless legs syndrome) HTN (hypertension) Surgical History Surgical History 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) 02/20/20 Hx of tonsillectomy History of inguinal hernia repair Left Hx of meniscectomy of right knee Tobacco Smoking/Tobacco Use Status: Former Tobacco Use Alcohol Alcohol Intake: current Alcohol intake frequency: holidays/special occasions only Alcohol type: beer Substance Use Substance use: Never Substance use type: does not use Vital Signs and Lab Results Vital Signs Most Recent Vital Signs in EMR: Most Recent Vital Signs Temp Pulse Resp BP Pulse Ox 36.5 C 57 L 16 164/77 H 99 09/02/23 09:19 09/02/23 09:19 09/02/23 09:19 09/02/23 09:19 09/02/23 09:19 Lab Results Blood Type / Crossmatch: No Data to Display Complete Blood Count: No Data to Display Complete Metabolic Panel: No Data to Display Liver Function Panel: No Data to Display Coagulation Panel: No Data to Display Cardiac Panel: No Data to Display Arterial Blood Gas: No Data to Display Venous Blood Gas: No Data to Display Pancreas Panel: No Data to Display Thyroid Panel: No Data to Display Infectious Disease: No Data to Display Blood Cultures: No Data to Display Toxicology Panel: No Data to Display Imaging and Studies Imaging and Studies Study information below may be from another EMR and interpreted by another provider. Please see original notes in EMR for more complete details. EKG Summary: EKG PATIENT NAME: MARIELENA ZUNIGA UNIT #: [id number] ORDERING PROVIDER: Lion Hercules M.D. PRIMARY CARE PROVIDER: KAREN JENNINGS MD DATE/TIME OF SERVICE: 02/20/20 1039 : 1945 PERFORMING LOCATION: [facility] APPROVED REPORT Exam: Resting ECG Patient Location: I HR:67 bpm ECG Measurements Heart Rate 67 AXIS MD 185 P 49 QRSd 94 QRS 9 QT 406 T17 QTc 428 Conclusion Sinus rhythm...normal P axis, V-rate 60- 99 Ventricular trigeminy...trigeminy string>6 w/ V complexes Probable left atrial enlargement...P >50mS, <-0.10mV V1 <Electronically signed by EDUARDO BISWAS MD in OV> E-Sign Date: 02/20/20 E-Sign Time: 1204 Anesthesia Assessment and Plan Anesthesia History Personal History: No History of Anesthesia Complications Family History: No Family History of Anesthesia Complications Exercise Tolerance Exercise Tolerance: Metabolic Equivalents>4 Pertinent Negatives Pertinent Negatives: No Symptoms of GERD Cardiac & Pulmonary Exam Cardiac Exam: Normal S1/S2 Heart Sounds Pulmonary Exam: Clear Bilateral Breath Sounds Implantable Cardiac Device Does patient have a Pacemaker or an ICD?: No Airway Exam Known Difficult Airway: No Mallampati Class: 4 Mouth Opening: Normal (> 3cm) Thyromental Distance: Greater than 3 cm Neck Range of Motion: Full ROM Neck Circumference: Normal Teeth Condition: Normal Dentition ASA Classification ASA Score: ASA 3 Emergency Case?: No NPO Status NPO Status: NPO Clears >2 hours, Solids >8 hours Anesthesia Plan Resuscitation Status: Full Code Anesthesia Technique: MAC Anesthesia Airway Planned: Natural Airway Monitors Used: Standard Monitors
[2023-09-02 09:36] VITALS: BMI 35.6
[2023-09-02] MEDS: Tetracaine 0.5% 4 ML BTL OS (10:32)
[2023-09-02] MEDS: Povidone-Iodine Ophth 30 ML BTL (10:32)
[2023-09-02] MEDS: Duovisc Viscoelastic System EACH 1 EACH (10:40)
[2023-09-02] MEDS: Balanced Salt Soln.-PLUS 500 ML BAG OP (10:40)
[2023-09-02] MEDS: Lidocaine 1% Pres-Free 5 ML VIAL (10:41)
--- NOTE | 2023-09-02 11:11 | W.PM.DSUDISC ---
Date of service: 09/02/23 Time of Service: 11:11 Discharge Plan Disposition Patient Disposition: Home Discharge Details Attending Provider: Sudeep White Primary Care Provider: Rebeca Portillo Home Meds and New Rx's Prescriptions: No Action ropinirole 0.5 mg tablet 1 mg PO QHS Patient Comments: pt takes a dose at [id number] and then an additional dose before bedtime. Rx Instructions: administer 1-3 hours before bedtime oxycodone 5 mg tablet 5 mg PO Q4H MDD 6 tabs PRN (Reason: pain) Qty: 20 0RF metoprolol succinate 100 mg tablet extended release 24 hr 100 mg PO HS carbidopa-levodopa 25-100 mg tablet 1 tab PO QID fluticasone propionate [Allergy Relief (fluticasone)] 50 mcg/actuation spray,suspension 2 spray intranasal DAILY Rx Instructions: administer into each nostril folic acid 1 mg tablet 1 mg PO DAILY methotrexate sodium 2.5 mg tablet 10 mg PO QWEEK tamsulosin 0.4 mg capsule 0.8 mg PO DAILY celecoxib 200 mg capsule 200 mg PO BID Qty: 60 0RF chlorthalidone 25 mg tablet 12.5 mg PO DAILY Patient Comments: TAKE 1/2 (ONE-HALF) TABLET BY MOUTH ONCE DAILY acetaminophen 500 mg tablet 1,000 mg PO TID Qty: 90 3RF aspirin 81 mg tablet,delayed release (DR/EC) 81 mg PO BID Qty: 60 0RF Patient Comments: 09/02/23 pt reports he hasn't taken aspirin in a few weeks solifenacin 5 mg tablet 5 mg PO DAILY gabapentin 300 mg capsule 300 mg PO HS PRN Discharge Instructions Stand Alone Forms: DSU Post-Op CataractNicky (DSU) Discharge Orders Discharge Orders: Discharge Order (Routine); Ordered 09/02/23 Ordered By: Sudeep White DS: Diagnosis Discharge Diagnosis (1) Age-related nuclear cataract, left eye: Status: Resolved
--- NOTE | 2023-09-02 11:11 | W.PM.OP ---
Date of service: 09/02/23 Time of Service: 11:12 Operative Note Operative Note DATE OF PROCEDURE: 09/02/23 PRE-OP DIAGNOSIS: Nuclear cataract, left eye POST-OP DIAGNOSIS: same PROCEDURE: Cataract extraction using phacoemulsification with intraocular lens implant, left eye SURGEON: Sudeep White ANESTHESIA TYPE: Local By Surgeon and MAC Refer to Anesthesia Record PATHOLOGY: none sent COMPLICATIONS: None Patient was transported to: same day Patient's condition: stable Implants: Cesar Clareon [id number] Indications: Progressive decreased vision due to cataract, left eye Procedure Description: CATARACT SURGERY OPERATIVE REPORT PREOPERATIVE DIAGNOSIS: Nuclear cataract, left eye POSTOPERATIVE DIAGNOSIS: Same OPERATION: Cataract extraction using phacoemulsification with posterior chamber intraocular lens implant, left eye. IOL: IOL Registration Specialist/Model: Cesar Clareon [id number] IOL Power: + 21.0 diopters IOL Serial Number: [id number] Optic Diameter: 6.0mm Haptic/Overall Diameter: 13.0mm PHACO INFO: Cesar Orion[employer] Super[employer]urion Vision System with OZil and Active Fluidics Cumulative Dispersed Energy (CDE): 6.47 seconds SURGEON: Sudeep White MD, SHEN ANESTHESIA: Monitored Anesthesia Care (MAC), with local sub-tenon's anesthetic infiltration COMPLICATIONS: None SPECIMENS: None INDICATIONS FOR PROCEDURE: The patient is a 77-year-old male with history of diminished visual acuity in both eyes secondary to the development of bilateral nuclear cataract. He is significantly symptomatic that he desires cataract surgery attempt to improve and maximize his vision. He has already undergone cataract surgery in the right eye and is doing well postoperatively. He now presents for cataract surgery in the left eye. See office notes for detailed information. PROCEDURE: The correct surgical eye was identified and marked as the left eye and the pupil was dilated in the preoperative area using mydriatics and cycloplegics. The dilated pupil size was 6.0 mm. The patient elected to proceed without oral sedation. The patient was brought to the operating room where cardiopulmonary monitoring was instituted and surgical time-out was performed, confirming the correct operative eye and IOL power. Topical anesthesia was administered and ophthalmic povidone-iodine 5% was instilled into the conjunctival fornices. The riana-ocular area was prepped with Betadine 10% solution and draped in the usual sterile fashion for intraocular surgery, including an aperture drape. A Tegaderm transparent film dressing was cut in half and used to cover the lashes and lid margins. Care was taken to sequester the lashes and lid margins under the Tegaderm dressing. A lid speculum was placed between the lids of the operative eye and the Cesar LuxOR Revalia operating microscope was maneuvered into position. Reynaldo scissors were then used to make a conjunctival buttonhole approximately 6mm posterior to the limbus in the inferonasal quadrant. Blunt dissection was carried out to expose bare sclera, and a blunt-tipped sub-tenon?s anesthesia cannula was introduced and passed posteriorly along the globe where non-preserved plain lidocaine was injected into posterior sub-Tenon?s space. A sideport knife was used to make a paracentesis port. Intraocular phenylephrine/lidocaine was injected into the anterior chamber. The anterior chamber was then filled with viscoelastic. A keratome knife was used construct a two-plane clear corneal tunnel extending 2.0mm into clear cornea. A flap was raised on the anterior capsule and capsulorhexis forceps were used to complete a continuous curvilinear capsulorhexis of 5.0 mm. Some generalized zonular laxity was noted. Balanced salt solution was then used to perform cortical cleaving hydrodissection and nuclear hydrodelineation until the lens could be freely rotated within the capsular bag. The lens nucleus was then disassembled and removed within the capsular bag and iris plane using phacoemulsification. Residual cortical material was removed using the irrigation/aspiration handpiece. The posterior capsule was carefully polished to remove as much residual lens epithelial cells as safely possible. The capsular bag was then inflated and the anterior chamber deepened with viscoelastic. The lens implant described above was inserted into the capsular bag using the Cesar Autonome Injector. A Kuglen hook was used to dial the IOL into position. Residual viscoelastic was then removed first from posterior to the IOL, then from the anterior chamber using the I/A handpiece. The lens implant was noted to center nicely within the capsular bag. The incisions were stromally hydrated, and the anterior chamber was reformed using BSS. Then 0.5cc of moxifloxacin 1.0mg/ml were injected into the capsular bag and anterior chamber. The incisions were checked with a Weck spear and found to be secure. Several drops of ophthalmic povidone-iodine 5% were then applied to the eye followed by two drops of combination steroid/NSAID/antibiotic solution. The drapes were removed and a clear plastic protective eye shield was placed over the eye. The patient was then returned to Same Day Surgery in stable condition.
[2023-09-02 11:12] VITALS: BP 176/86; PULSE 60; RESP 18; TEMP 36.6; O2SAT 99
--- NOTE | 2023-09-02 11:26 | W.ANESPOSTOP ---
Postoperative Evaluation Date, Time and Location Date Performed: 09/02/23 Time Performed: 11:26 Patient Location: Day Surgery Unit Vital Signs Most Recent Imported Vital Signs: Most Recent Vital Signs Temp Pulse Resp BP Pulse Ox 36.6 C 60 18 176/86 H 99 09/02/23 11:12 09/02/23 11:12 09/02/23 11:12 09/02/23 11:12 09/02/23 11:12 Pain Score Most Recent Pain Score: Most Recent Pain Score Pain Level 0 09/02/23 11:12 Assessment Mental Status: Awake (Alert & Oriented to Patient Baseline) Airway and Respiratory Function: Patent airway with normal (patient baseline) respiratory exam Cardiovascular Function: Hemodynamically Stable Hydration Status: Adequately Hydrated Nausea & Vomiting: No Nausea or Vomiting Pain: Pt. Denies Any Pain Peripheral Nerve Block: Patient did not receive a nerve block
== END 2023-09-02 11:35 | disposition home or self-care (01) ==
PROVIDERS: PCP Internal Medicine; Visit Provider Ophthalmology
PROC: (CPT 66984; principal; 2023-09-02 11:30)
DX: H25.12 Age-related nuclear cataract, left eye (principal); I25.10 Atherosclerotic heart disease of native coronary artery without angina pectoris; Z98.41 Cataract extraction status, right eye
CPT/HCPCS: 66984; 00123; V2632; J2003

== ENCOUNTER → 2023-09-28 14:59 | Outpatient (BNVA) | payer MEDICARE, SELFPAY | PROVIDERS: PCP Internal Medicine; Referring Provider Internal Medicine; Visit Provider Podiatrist | DX: L60.0 Ingrowing nail (principal); M79.672 Pain in left foot | CPT/HCPCS: 11750 ==

== ENCOUNTER → 2023-10-12 15:31 | Outpatient (BNVA) | payer MEDICARE, SELFPAY | PROVIDERS: PCP Internal Medicine; Referring Provider Internal Medicine; Visit Provider Podiatrist | DX: L60.0 Ingrowing nail (principal); M79.671 Pain in right foot; M79.672 Pain in left foot | CPT/HCPCS: 11750 ==

== ENCOUNTER → 2023-10-26 09:57 | Outpatient (BNVA) | payer MEDICARE, SELFPAY | PROVIDERS: PCP Internal Medicine; Referring Provider Internal Medicine; Visit Provider Podiatrist | DX: M79.671 Pain in right foot (principal); L60.0 Ingrowing nail; M79.672 Pain in left foot | CPT/HCPCS: 99213 ==

== ENCOUNTER → 2023-11-03 13:23 | Outpatient (BNVA) | payer MEDICARE, SELFPAY | PROVIDERS: PCP Internal Medicine; Referring Provider Internal Medicine; Visit Provider Student in an Organized Health Care Education/Training Program | DX: Z47.1 Aftercare following joint replacement surgery (principal); Z96.652 Presence of left artificial knee joint | CPT/HCPCS: 99213 ==

== ENCOUNTER 2024-07-19 13:26 | Outpatient (CLI) | payer MEDICARE, SELFPAY ==
--- NOTE | 2024-07-19 13:15 | DI.RAD_ITS ---
Exam(s) XR KNEE LT 2V AP,LAT EXAM: XR KNEE LT 2V AP,LAT CLINICAL HISTORY: ANNUAL F/U L TKA. TECHNIQUE: 2D digital imaging was performed. Two images were obtained. AP and lateral views were ob tained. COMPARISON: CR XR KNEE LT 1V from 07/25/2023 CR XR STANDING ALIGNMENT from 07/25/2023 FINDINGS: BONES: There are stable post operative changes of a left total knee arthroplasty present. No fractur e or dislocation. JOINTS: The orthopedic hardware is in good position. No evidence of hardware loosening. SOFT TISSUE: Atherosclerotic calcification is present. IMPRESSION: Stable left total knee arthroplasty. DATA REPOSITORY: RADIATION DOSE DELIVERED:
== END 2024-07-19 13:27 | disposition home or self-care (01) ==
LOC: DIORS 13:26
PROVIDERS: PCP Internal Medicine; Referring Provider Internal Medicine; Visit Provider Physician Assistant
DX: Z96.652 Presence of left artificial knee joint (principal); Z47.1 Aftercare following joint replacement surgery
CPT/HCPCS: 99213; 73560